=== PATIENT | female | born 1960 | race Caucasian/White ===

== ENCOUNTER → 2020-08-14 09:10 | Outpatient (BNVA) | payer OTHER, SELFPAY | PROVIDERS: Family Provider Family Medicine; PCP Family Medicine; Referring Provider Family Medicine; Visit Provider Specialist | DX: G56.00 Carpal tunnel syndrome, unspecified upper limb (principal) | CPT/HCPCS: 73110 ==

== ENCOUNTER → 2020-08-27 15:46 | Outpatient (BNVA) | payer OTHER, SELFPAY | PROVIDERS: Family Provider Family Medicine; PCP Family Medicine; Visit Provider Orthopaedic Surgery | DX: M54.2 Cervicalgia (principal) | CPT/HCPCS: 72050 ==

== ENCOUNTER 2020-08-30 10:16 | Outpatient (CLI) | payer OTHER, SELFPAY ==
--- NOTE | 2020-08-30 10:15 | MR_ITS ---
WS: [id number] MRI CERVICAL SPINE NONCONTRAST HISTORY: M54.2 - Cervicalgia COMPARISON: 03/26/2010 Technique: Multiplanar, multisequence noncontrast imaging of the cervical spine. This MRI examination is significantly limited by motion artifact. Patient was in pain during the exam ination and unable to remain still. Mild RIGHT curvature cervical spine and straightening. Very mild increased signal in the cervical cord extending over length of 2 cm beginning at the C3-4 d isc. Craniocervical junction, C1 and C2 relationship, odontoid process and soft tissues are normal. C2-C3: Mild RIGHT foraminal narrowing due to facet disease. C3-C4: Diffuse osteophytic ridging with severe disc space narrowing at C3-4. There are large bridging osteophytes and calcified disc centrally. Severe central and moderate bilateral foraminal stenosis due to combination of disc and facet disease in the osteophytes. C4-C5: Marked osteophytic ridging and annular disc bulging with facet and ligamentum flavum hypertrop hy. Severe central canal stenosis and bilateral foraminal stenosis. Significant impingement contact o n the cord. C5-C6: Diffuse osteophytic ridging and annular disc bulging. Mild facet and ligamentum flavum hypertr ophy. Suspected disc protrusion in the LEFT foramen. Severe central and bilateral foraminal stenosis. Significant cord contact. C6-C7: Diffuse osteophytic ridging and annular disc bulging. The disc is poorly visualized but there are probably disc osteophyte complexes bilaterally. Severe central and bilateral foraminal stenosis. Significant impingement upon the cord. C7-T1: Mild narrowing of the LEFT foramen due to disc and osteophyte. Paraspinal soft tissue are normal. MR/MR cervical spin wo con* [id number] IMPRESSION: 1. Quality is limited by motion artifact. 2. Severe multilevel central and foraminal stenosis beginning at C3-4 through C6-7. There is significant cord contact at several levels with the most signifi cant stenosis at C4-5. 3. Myelomalacia in the cervical cord extends over length of 2 cm beginning at C3-4.
== END 2020-08-30 10:17 | disposition home or self-care (01) ==
LOC: RADSHAW 10:18
PROVIDERS: PCP Family Medicine; Visit Provider Orthopaedic Surgery
DX: G95.89 Other specified diseases of spinal cord (principal); M48.02 Spinal stenosis, cervical region
CPT/HCPCS: 72141; 87635

== ENCOUNTER 2020-09-03 17:32 | Inpatient (IN) | payer OTHER, SELFPAY ==
[2020-09-02 08:58] VITALS: BMI 29.8
[2020-09-02 09:30] LABS: Basophils # 0.1 10^3/uL (0.0-0.1); Basophils % 0.6 %; Eosinophils # 0.2 10^3/uL (0.0-0.8); Eosinophils % 1.6 %; Hematocrit 38.7 % (37.0-47.0); Hemoglobin 13.4 g/dL (11.5-15.3); Lymphocytes # 2.8 10^3/uL (0.8-4.8); Lymphocytes % 27.3 %; Mean Corpuscular HGB Conc 34.6 g/dL (30.0-36.0); Mean Corpuscular Hemoglobin 31.5 pg (28.0-34.0); Mean Corpuscular Volume 91.1 fL (81-99); Mean Platelet Volume 10.1 fL (7.4-10.4); Monocytes # 0.8 10^3/uL (0.2-0.9); Monocytes % 8.1 %; Neutrophils # 6.33 10^3/uL (1.8-7.7); Neutrophils % 61.9 %; Nucleated Red Blood Cells % 0 %; Platelet Count 294 10^3/cmm (130-400); Red Blood Count 4.25 10^6/uL (4.1-5.3); Red Cell Distribution Width 13.2 % (12.1-15.1); White Blood Count 10.2 10^3/uL (4.0-10.0)
--- NOTE | 2020-09-02 09:31 | ANES.PREANE2 ---
Pre-Anesthetic Assessment Pre-Anesthetic Assessment: Height/Weight: Height 1.63 m Weight 78.925 kg Preop Diagnosis: cervical spondylosis with myelopathy Proposed Procedure: Operation Date: 09/03/20 13:30 Proposed Procedures p PSF C2-T2 with decompression 86625 46981 92883 82065 10476 82473 21191 95031 M47.12(Not Applicable) - Castro Cheng, DO Was Beta Arvin taken within 24 hours: Yes Was Clonidine taken within 24 hours: N/A Social: Social History: Tobacco and No alcohol Exam: Pre-Anes Outpt Exam: alert, oriented x 3 and regular rate & rhythm Additional Exam Findings (including area of procedure): rhonchi Airway: Submandibular: WNL Cervical ROM: Other (Poor, limited by pain) MP: 2 Dentition: False CV/HEM: CV/HEM: HTN Metabolic: Comments: Chronic steroids Musc/skel: Comments: Chronic pain/opioids Anesthetic Plan: ASA status: 3 Anesthesia: General Other: A.line Risk of > 500 ml blood loss (7ml/kg in children): No PFSH Anesthesia PFSH: Social History (Updated 09/02/20 @ 08:57 by Loly Paula) Smoking and tobacco status: current every day smoker Data Anesthesia CBC & Chem 7: 09/02/20 09:15 09/02/20 09:15 Other Labs: Laboratory Results - last 48 hr 09/02/20 09:15 WBC 10.2 H RBC 4.25 Hgb 13.4 Hct 38.7 MCV 91.1 MCH 31.5 MCHC 34.6 RDW 13.2 Plt Count 294 MPV 10.1 Neut % (Auto) 61.9 Lymph % (Auto) 27.3 Cascade % (Auto) 8.1 Eos % (Auto) 1.6 Baso % (Auto) 0.6 Neut # (Auto) 6.33 Lymph # (Auto) 2.8 Cascade # (Auto) 0.8 Eos # (Auto) 0.2 Baso # (Auto) 0.1 Nucleated RBC % (auto) 0 Nucleated RBCs # 0.0 Cardiac Studies: No Data to Display
[2020-09-02 09:42] LABS: Anion Gap 15.7 (5-19); Blood Urea Nitrogen 10 mg/dL (8-23); Calcium 8.7 mg/dL (8.5-10.5); Carbon Dioxide 25 mmol/L (22-29); Chloride 98 mmol/L (98-107); Glomerular Filtration Rate 162.3 mL/min (90-130); Glucose 102 mg/dL (65-115); Osmolality Calculated 279 mOsm/kg (285-295); Potassium 3.7 mmol/L (3.5-5.1); Sodium 135 mmol/L (136-145)
[2020-09-02 09:51] LABS: Creatinine Clr Calc Pharmacy 150.1315
[2020-09-03] VITALS (28 sets, daily range): BP systolic 94–135; BP diastolic 56–106; PULSE 87–101; RESP 9–19; TEMP 36.1–37.1; O2SAT 91–99
--- NOTE | 2020-09-03 | SCC_ITS ---
Procedure Done: 1. C2-T2 posterior spine fusion 2. C2-T2 instrumentation 3. C3 laminectomy with partial facetectomy 4. C4 Laminectomy with partial facetectomy 5. C5 Laminectomy with partial facetectomy 6. C6 Laminectomy with partial facetectomy 7. C7 Laminectomy with partial facetectomy 8. Application and removal of ambriz tongs 9. Use of allograft 10. Use of autograft from same incision 56.7 seconds of fluoroscopic guidance, for a cumulative dose of 8.89 mGy, was provided to Dr. Cheng by the radiology department. C-arm images of the cervical spine were saved for the patient's permanent record. [facility]
--- NOTE | 2020-09-03 | XR_ITS ---
WS: [id number] C-arm fluoroscopy AP view of the cervical spine, 09/03/2020 Clinical Data: OR PICS Comparison: Cervical spine, 08/27/2020. Findings: There are extensive bilateral pedicle screws from C3 through T3 in the AP view. XR/XR cervical spine 1V [id number] Impression: Bilateral pedicle screws in the cervical spine and upper thoracic spine.
[2020-09-03] MEDS: sodium chloride 0.9% 1,000 ML 30 ML IV (10:50)
--- NOTE | 2020-09-03 12:10 | P.ANESUD_ITS ---
Pre-Anesthetic Update Pre-Anesthetic Assessment: Date of Surgery/Procedure: 09/03/20 Preop Nell gnosis: cervical spondylosis with myelopathy Proposed Procedure: Operation Date: 09/03/20 12:00 Proposed Procedures p PSF C2-T2 with decompression 19892 37408 85259 84793 88205 60257 29972 94961 M47.12(Not Applicable) - Castro H Skylar, DO Any changes to Pre-Anesthetic Assessment?: No Last Intake: Intake Last Liquid Date 09/02/20 Last Liquid Time 11:00 Last Solid Date 09/02/20 Last Solid Time 11:00 Labs Last 48hrs: Laboratory Results - last 48 hr 09/02/20 09/02/20 09:15 09:15 WBC 10.2 H RBC 4.25 Hgb 13.4 Hct 38.7 MCV 91.1 MCH 31.5 MCHC 34.6 RDW 13.2 Plt Count 294 MPV 10.1 Neut % (Auto) 61.9 Lymph % (Auto) 27.3 Mccracken % (Auto) 8.1 Eos % (Auto) 1.6 Baso % (Auto) 0.6 Neut # (Auto) 6.33 Lymph # (Auto) 2.8 [place]racken # (Auto) 0.8 Eos # (Auto) 0.2 Baso # (Auto) 0.1 Nucleated RBC % (a uto) 0 Nucleated RBCs # 0.0 Sodium 135 L Potassium 3.7 Chloride 98 Carbon Dioxide 25 Anion Gap 15.7 BUN 10 Creatinine 0.4 L GFR Calculation 162.3 H Glucose 102 Calculated Osmolal ity 279 L Calcium 8.7 Vitals: Temperature 98.8 F 09/03/20 10:34 Temperature Source Temporal Artery S can 09/03/20 10:34 Pulse Rate 93 09/03/20 10:34 Respiratory Rate 16 09/03/20 10:34 Blood Pressure 118/88 09/03/20 10:34 Blood Pressure Angelic n 98 09/03/20 10:34 Pulse Oximetry 95 09/03/20 10:34 Oxygen Delivery Me thod 09/03/20 10:34 Exam: Pre-Anes Outpt Exam: alert, oriented x 3, clear to auscultation bilaterally and regular rate & rhythm Cardiac Studies: No Data to Display
[2020-09-03] MEDS: midazolam 1 mg/mL INJ 2 mL 2 MG IVP (12:11)
--- NOTE | 2020-09-03 12:15 | W.PM.OPSUD ---
Surgery/Procedure H&P Update DATE OF PROCEDURE: September 03, 2020 DATE H&P PERFORMED: 08/27/20 H&P UPDATE INFORMATION: I have reviewed H&P completed within last 30 days, I have examined patient prior to procedure and No changes to prior documentation PREOP DIAGNOSIS: cervical spondylosis with myelopathy PLANNED PROCEDURE: Operation Date: 09/03/20 12:00 Proposed Procedures p PSF C2-T2 with decompression 11571 45395 15519 28745 35514 88561 06406 93658 M47.12(Not Applicable) - Castro Cheng DO
[2020-09-03] MEDS: fentaNYL 50 mcg/mL INJ 2mL IVP ×3 (13:17→19:28)
[2020-09-03] MEDS: thrombin 5,000 unit SDV 5000 UNIT XX (14:30)
[2020-09-03 16:53] LABS: Add Urine Microscopic? YES; Bilirubin Urine Neg (Negative); Blood Urine Neg (Negative); Glucose Urine UA Norm (Normal); Ketones Urine 1+ (Negative); Leukocyte Esterase Urine Negative (Negative); Nitrate Urine Negative (Negative); Protein Urine Neg (Negative); Urine Appearance Turbid (CLEAR); Urine Color Yellow (Yellow); Urobilinogen Urine Norm (Negative); pH Urine 5 (5-7)
[2020-09-03 16:59] LABS: Bacteria Urine 2+ /hpf
[2020-09-03 17:00] LABS: Add Urine Culture? No; Amorphous Sediment Urine 2+ /hpf
[2020-09-03] MEDS: cefTRIAXone 2,000 MG in sodium chloride 0.9% (plus) 50 ML 100 MG IV (17:27)
--- NOTE | 2020-09-03 18:15 | PM.OP ---
Operative Report Date of procedure: September 03, 2020 Pre-op Diagnosis: cervical spondylosis with myelopathy Post-op diagnosis: same Procedure Done: 1. C2-T2 posterior spine fusion 2. C2-T2 instrumentation 3. C3 laminectomy with partial facetectomy 4. C4 Laminectomy with partial facetectomy 5. C5 Laminectomy with partial facetectomy 6. C6 Laminectomy with partial facetectomy 7. C7 Laminectomy with partial facetectomy 8. Application and removal of ambriz tongs 9. Use of allograft 10. Use of autograft from same incision Surgeon: Castro Cheng Anesthesia: General Estimated blood loss (mL): 700 Condition: stable Disposition: PACU Procedure: 1. C2-T2 posterior spine fusion 2. C2-T2 instrumentation 3. C3 laminectomy with partial facetectomy 4. C4 Laminectomy with partial facetectomy 5. C5 Laminectomy with partial facetectomy 6. C6 Laminectomy with partial facetectomy 7. C7 Laminectomy with partial facetectomy 8. Application and removal of ambriz tongs 9. Use of allograft 10. Use of autograft from same incision Patient was brought to the operative suite after undergoing anesthesia the Ambriz tongs were applied to her head. She has flipped into the prone position all areas impingement were well-padded. Ambriz patch was attached onto the bed. Patient was then prepped and draped in normal sterile fashion over posterior cervical spine area. Skin incision made over the posterior cervical spine from C2-T2. The subperiosteal dissection was made along the lamina out to the edges of the lateral masses from C2-T2 T1 and T2 were out to the transverse processes. Once the levels were confirmed pars screws were placed in the C2. And then lateral mass screws were placed at C3-C4-C5 and C6 bilaterally. The screws were done by using the handrail setting at 2 mm increments and then feeling with the ball feeler. The pars screws on the left was a size 20 and the prior screw on the right was a 16. And the lateral mass screws were a size 14. Next attention was brought to performing the laminectomy. Laminectomy was done at C7 using the high-speed bur. The lamina was taken down bilaterally and then a Kerrison rongeur was used to complete the laminectomy. This was done at C7 as well as C6 followed by C5 followed by C4 followed by C3 Kerrison rongeur was then brought up the laminas of each bilaterally and then Kerrison rongeur was used to grab the spinous process of C7 and then the ligamentum flavum was taken down from C7 all the way up to C3 and the lamina were removed. Extension was brought to the partial facetectomies high-speed bur was used to clean the edges of all the facets from C3 down to C7 bilaterally and Kerrison rongeur was used to clean the edges of the facets bilaterally taken on the medial aspect of each facet from C3-4 C4-5 C5-6 C6-7 bilaterally. Dura was found to be in good repair floated back significantly had severe compression prior to the laminectomy. Wounds were irrigated. The high-speed bur was then used to decorticate the bone around the screws. And then rods were attached from C2-T2 bilaterally. And then locked in position with screw caps. The bone from the lamina was mixed in with the Osteoamp graft. And packed in around the lateral masses from C2-T2. Once this was completed then a Hemovac drain was placed and the muscle was approximated with 0 Vicryl and then the cervical fascia was closed with oh strata fix. Subcu tissue was closed with 2 oh strata fix and skin was closed with nylon. Sterile dressings were applied. Patient's head was detached from the bed. Patient was flipped into the supine position and the Ambriz tongs were removed and patient was transferred to the PACU in stable condition.
--- NOTE | 2020-09-03 18:26 | ANES.PROC ---
Anesthesia Procedures Procedure/Date: 09/03/20 Arterial Line: Time Out Performed: Yes Consent: requested by attending/covering physician, from patient, risks and benefits reviewed and patient agrees to proceed Size (Gauge): 20 Technique Used: guide wire technique Post-Procedure: dry sterile dressing placed Patient Tolerated Procedure: well Complications: none Site: right and radial
--- NOTE | 2020-09-03 18:53 | SUR.PHASEI ---
1820 ART. LINE REMOVE CATHETER INTACT
--- NOTE | 2020-09-03 18:54 | SUR.PHASEI ---
1835 PRESSURE DRESSING APPLIED TO ART. LINE SITE, BLEEDING CONTROLLED
--- NOTE | 2020-09-03 19:37 | PM.CONSULT ---
Providers/Reason For Consult Consulting Physican/Specialty*: Skylar Reason for Consult*: Medical management postoperatively. Attending Physician: Castro Cheng DO Primary Care Provider: Onesimo Lacey MD History of Present Illness History of Present Illness Destin Rodgers is a 60 year old female with past medical history of hypertension, severe cervical stenosis who underwent cervical spine laminectomy and fusion by Dr. Cheng. Our service was kindly asked to help with the management of patient's medical conditions perioperatively. Currently the patient is in recovery. She is extubated. Still sedated and unable to provide significant history. She is occasionally moaning but there is no evidence of uncontrolled pain. No respiratory distress. Estimated blood loss was about 700 cc. I spoke with recovery nurse. There were no hemodynamic problems during the surgery. Vital signs remained stable. Review of Systems General: Reports: ROS unobtainable due to mental status Meds/Allergies Home Medications and Allergies Home Medications Medication Instructions Recorded Confirmed Last Taken Type COCK UP SPLINT #2 ea NS 08/14/20 08/30/20 Unknown Rx atorvastatin 20 mg tablet 20 mg PO DAILY 08/14/20 09/03/20 09/02/20 History diazepam 5 mg tablet 5 mg PO BID PRN 08/14/20 09/02/20 Unknown History duloxetine 30 mg capsule,delayed 30 mg PO DAILY 08/14/20 09/03/20 09/02/20 History release furosemide 20 mg tablet 20 mg PO DAILY PRN 08/14/20 09/03/20 Unknown History hydrochlorothiazide 25 mg tablet 25 mg PO DAILY 08/14/20 09/03/20 09/02/20 History ibuprofen 800 mg tablet 800 mg PO TID PRN 08/14/20 09/03/20 09/02/20 History lisinopril 20 mg tablet 20 mg PO BID 08/14/20 09/03/20 09/02/20 History potassium chloride 10 mEq 10 meq PO DAILY 08/14/20 09/03/20 09/02/20 History capsule,extended release prednisone 20 mg tablet 20 mg PO DAILY PRN 08/14/20 09/02/20 Unknown History tramadol 50 mg tablet 50 mg PO Q4H PRN 08/14/20 09/02/20 Unknown History zolpidem 10 mg tablet 10 mg PO BEDTIME PRN 08/14/20 09/02/20 Unknown History amlodipine 10 mg PO DAILY 09/02/20 09/03/20 09/02/20 History metoprolol succinate 100 mg PO DAILY 09/02/20 09/03/20 09/02/20 21:00 History Bone growth Stimulator E0748 #1 ea 09/03/20 Unknown Rx Allergies Allergy/AdvReac Type Severity Reaction Status Date / Time No Known Allergies Allergy Verified 09/03/20 10:32 Current Medications Current Medications Generic Name Dose Route Start Last Admin Trade Name Freq PRN Reason Stop Dose Admin Fentanyl 50 mcg 09/03/20 10:26 09/03/20 13:17 Fentanyl 50 Mcg/Ml Inj 2ml IVP 50 mcg Q10M PRN Administration Preop Pain Sodium Chloride 1,000 mls @ 30 mls/hr 09/03/20 10:30 09/03/20 10:50 Sodium Chloride 0.9% IV 09/04/20 10:29 30 mls/hr .Q24H MONIQUE Administration Midazolam HCl 2 mg 09/03/20 10:26 09/03/20 12:11 Midazolam 1 Mg/Ml Inj 2 Ml IVP 2 mg Q5M PRN Administration Preop Anxiety PFSH Acute PFSH: Social History (Updated 09/02/20 @ 08:57 by Loly Paula) Smoking and tobacco status: current every day smoker Vitals/I&O/Wt Last Vital Signs Temp 97 F L 09/03/20 18:16 Pulse 93 09/03/20 19:30 Resp 14 09/03/20 19:30 BP 126/81 09/03/20 19:30 Pulse Ox 95 09/03/20 19:30 09/03/20 09/03/20 09/03/20 06:59 14:59 22:59 Intake Total 50 / 50 650 / 700 Output Total 900 / 900 Balance 50 / 50 -250 / -200 Weight last 48 hrs Weight 78.925 kg Weight 78.925 kg Physical Exam Narrative: EXAM NARRATIVE: Still very sedated, tries to open her eyes on request. Lifts her head. No verbal response yet. Skin is warm and dry. Pale. Moist mucous membranes Neck. Cervical collar is present. Lungs are clear. No respiratory distress Heart S1, S2, regular Abdomen soft, nontender, bowel sounds are weak Extremities no edema cyanosis or calf tenderness bilaterally Moves all extremities Eyes PERRL. Urinary Catheter Management^: F: Cath Placed During This Visit: yes Urinary Catheter Date of Insertion: 09/03/20 Urinary Catheter Time of Insertion: 13:35 A&P Additional A&P Information 60-year-old female with past medical history of hypertension and severe cervical stenosis who underwent cervical laminectomy and fusion by Dr. Cheng. Our service was kindly asked by Dr. Cheng to participate in treatment of this patient. Status post cervical fusion and laminectomy. We will continue pain management as already prescribed. Will adjust medications as needed. Continue OT eval and treat in the morning. Estimated blood loss of 700 cc. We will monitor her CBC. Acute blood loss anemia is expected. She is hemodynamically stable. Hypertension. Currently stable. Her home medications are resumed. We will closely monitor her and do the necessary adjustments during this hospitalization. Bacteriuria. The patient is started on Rocephin. It is unclear whether the patient is symptomatic or not. We will reevaluate this problem in the morning when she is more awake. Will consider stopping her Rocephin. Hyponatremia. Mild. Probably due to hydrochlorothiazide. We will monitor it closely. ? Prednisone. Home medication list includes prednisone 20 mg daily. It is unknown why the patient is on steroids. I will clarify it in the morning. DVT prophylaxis. She is on Lovenox. Will monitor platelet count. Thank you very much for allowing us to participate in treatment of this patient. Procedures Arterial Line Size (Gauge): 20 Coding Level of Care Code Acute Maintenance Of Way Superintendent for Esther Schaeffer
[2020-09-03] MEDS: morphine 4 mg/mL SDV 1 mL 2 MG IVP ×2 (19:47→19:52)
--- NOTE | 2020-09-03 20:34 | ANE.PACU2 ---
Inpatient post-anesthesia follow up: Airway intact: Yes Vital signs: Temperature 97.6 F Pulse Rate 97 Respiratory Rate 18 Blood Pressure 117/84 Pulse Oximetry 96 Oxygen Delivery Me thod Nasal Cannula Oxygen Flow Rate 2 Fraction of Inspir ed Oxygen Hydration adequate: Yes Nausea and vomiting: No Pain level: 3 Mental status: Altered Additional Comments: Sedated
[2020-09-03] MEDS: ketorolac 30 mg/mL INJ IVP (21:12)
[2020-09-03 21:43] LABS: Basophils # 0.1 10^3/uL (0.0-0.1); Basophils % 0.4 %; Hematocrit 34.5 % (37.0-47.0); Hemoglobin 11.8 g/dL (11.5-15.3); Lymphocytes # 0.8 10^3/uL (0.8-4.8); Lymphocytes % 5.9 %; Mean Corpuscular HGB Conc 34.2 g/dL (30.0-36.0); Mean Corpuscular Hemoglobin 31.5 pg (28.0-34.0); Mean Platelet Volume 10.1 fL (7.4-10.4); Monocytes # 0.1 10^3/uL (0.2-0.9); Monocytes % 0.9 %; Neutrophils # 12.44 10^3/uL (1.8-7.7); Neutrophils % 92.3 %; Nucleated Red Blood Cells % 0 %; Platelet Count 276 10^3/cmm (130-400); Red Blood Count 3.75 10^6/uL (4.1-5.3); White Blood Count 13.5 10^3/uL (4.0-10.0)
[2020-09-03] MEDS: lactated ringers 1,000 ML 90 ML IV (23:48)
[2020-09-03] MEDS: HYDROcodone-acetaminophen 5-325 mg Tablet PO (23:54)
[2020-09-04] VITALS (8 sets, daily range): BP systolic 96–127; BP diastolic 65–78; PULSE 94–111; RESP 15–18; TEMP 36.3–37.1; O2SAT 93–98
[2020-09-04] MEDS: TRAMadol 50 mg Tablet PO (02:41)
[2020-09-04 02:49] LABS: Basophils % 0.3 %; Hematocrit 31.8 % (37.0-47.0); Hemoglobin 11.1 g/dL (11.5-15.3); Lymphocytes # 0.7 10^3/uL (0.8-4.8); Mean Corpuscular HGB Conc 34.9 g/dL (30.0-36.0); Mean Corpuscular Hemoglobin 31.8 pg (28.0-34.0); Mean Corpuscular Volume 91.1 fL (81-99); Mean Platelet Volume 10.2 fL (7.4-10.4); Monocytes # 0.1 10^3/uL (0.2-0.9); Monocytes % 0.8 %; Neutrophils # 13.15 10^3/uL (1.8-7.7); Neutrophils % 93.5 %; Nucleated Red Blood Cells % 0 %; Platelet Count 270 10^3/cmm (130-400); Red Blood Count 3.49 10^6/uL (4.1-5.3); Red Cell Distribution Width 12.9 % (12.1-15.1); White Blood Count 14.1 10^3/uL (4.0-10.0)
[2020-09-04 03:04] LABS: Magnesium 1.6 mg/dL (1.7-2.3)
[2020-09-04 03:09] LABS: Albumin Level 3.7 g/dL (3.5-5.2); Blood Urea Nitrogen 10 mg/dL (8-23); Calcium 7.6 mg/dL (8.5-10.5); Carbon Dioxide 25 mmol/L (22-29); Chloride 104 mmol/L (98-107); Creatinine Clr Calc Pharmacy 120.1052; Glomerular Filtration Rate 125.4 mL/min (90-130); Glucose 152 mg/dL (65-115); Sodium 138 mmol/L (136-145)
[2020-09-04] MEDS: morphine 4 mg/mL SDV 1 mL IVP ×2 (03:20→10:32)
--- NOTE | 2020-09-04 03:22 | PC.NURSE ---
Patient is crying out loudly in pain, tears rolling down her face. She reports pain 10/10. Patient has had toradol, hydrocodone, and tramadol without significant relief. Received order for morphine 2-4mg q3hour prn from Dr. Alanis.
[2020-09-04] MEDS: cefTRIAXone 1,000 MG in sodium chloride 0.9% (plus) 50 ML 100 MG IV ×2 (05:35→17:04)
[2020-09-04] MEDS: enoxaparin 40 mg/0.4 mL Syringe SUBCUT (05:39)
--- NOTE | 2020-09-04 07:07 | P.PN_ITS ---
Subjective Subjective: Interval history: Patient's collar his too large for her. Patient's had significant pain through the night. At this point pain is better controlled on morphine. We will keep her on the morphine. The patient's subjective movement is back to baseline to preop. Vitals/I&O/Wt Last Vital Signs Temp 98.1 F 09/04/20 01:56 Pulse 98 09/04/20 01:56 Resp 16 09/04/20 01:56 BP 127/78 09/04/20 01:56 Pulse Ox 97 09/04/20 01:56 09/03/20 09/04/20 09/04/20 22:59 06:59 14:59 Intake Total 1650 / 1700 190 / 1890 Output Total 1060 / 1060 830 / 1890 Balance 590 / 640 -640 / 0 Weight last 48 hrs Weight 174 lb Weight 174 lb Physical Exam Narrative: EXAM NARRATIVE: Patient is moving her bilateral upper extremities and lower extremities. Drain had approximate 2 and 50 cc out. At this point I will leave it in. Urinary Catheter Management^: F: Cath Placed During This Visit: yes Reason for Continuing Indwelling Catheter: Perioperative Use in Selected Surgeries Urinary Catheter Date of Insertion: 09/03/20 Urinary Catheter Time of Insertion: 13:35 Data : 09/04/20 02:09 09/04/20 02:09 A&P Assessment and plan (1) Cervical spondylosis with myelopathy: Patient is postop day #1 C2-T2 posterior spine fusion with decompression. Plan is to fit her for a [place] brace. Get her up with physical therapy at least to chair today. Consult social welfare research worker for possible rehab placement. Status: Acute Attestations Medical Necessity Statement*: Patient has significant myelopathy. Can barely walk. Likely will need to be in the hospital until she can find placement to a rehab facility. Procedures Arterial Line Size (Gauge): 20 Coding Level of Care Code Acute Finishing Room Supervisor for Esther Schaeffer Diagnoses Cervical spondylosis with myelopathy M47.12
[2020-09-04] MEDS: HYDROcodone-acetaminophen 5-325 mg Tablet PO ×2 (08:14→18:00)
[2020-09-04] MEDS: amlodipine 10 mg Tablet PO (08:15)
[2020-09-04] MEDS: duloxetine 30 mg Capsule PO (08:15)
[2020-09-04] MEDS: metoprolol succinate ER (24 HR) 100 mg Tablet PO (08:15)
[2020-09-04] MEDS: potassium chloride ER 10 mEq Tablet PO (08:15)
[2020-09-04] MEDS: hydroCHLOROthiazide 25 mg Tablet PO (08:15)
[2020-09-04] MEDS: atorvastatin 40 mg Tablet 20 MG PO (08:15)
[2020-09-04] MEDS: lisinopril 20 mg Tablet PO ×2 (08:15→17:05)
[2020-09-04] MEDS: lactated ringers 1,000 ML 90 ML IV (11:13)
--- NOTE | 2020-09-04 13:03 | PM.PN ---
Subjective Subjective: Interval history: Patient was seen ambulating with physical therapy, she tells me she is doing well, she tells me that she has appropriate help at home, her works as a nurse at [employer], she tells me that she only takes prednisone as a burst if she were to have osteoarthritic pain Vitals/I&O/Wt Last Vital Signs Temp 97.6 F 09/04/20 11:26 Pulse 108 H 09/04/20 11:26 Resp 18 09/04/20 11:26 BP 96/66 09/04/20 11:26 Pulse Ox 96 09/04/20 11:26 09/03/20 09/04/20 09/04/20 22:59 06:59 14:59 Intake Total 1650 / 1700 190 / 1890 1120 / 1120 Output Total 1060 / 1060 830 / 1890 Balance 590 / 640 -640 / 0 1120 / 1120 Physical Exam Urinary Catheter Management^: F: Cath Placed During This Visit: yes Reason for Continuing Indwelling Catheter: Perioperative Use in Selected Surgeries Urinary Catheter Date of Insertion: 09/03/20 Urinary Catheter Time of Insertion: 13:35 Data : 09/04/20 02:09 09/04/20 02:09 A&P Assessment and plan (1) Cervical spondylosis with myelopathy: Status: Acute (2) Hypertension: Status: Acute (3) UTI (urinary tract infection): Status: Acute Additional A&P Information 60-year-old female with past medical history of hypertension and severe cervical stenosis who underwent cervical laminectomy and fusion by Dr. Cheng. Our service was kindly asked by Dr. Cheng to participate in treatment of this patient. Status post cervical fusion and laminectomy. We will continue pain management as already prescribed. Drain in place. Continue OT eval and treat in the morning. Estimated blood loss of 700 cc. Hemoglobin 11.1. Acute blood loss anemia is expected. She is hemodynamically stable. Hypertension. Currently stable. Her home medications are resumed. We will closely monitor her and do the necessary adjustments during this hospitalization. UTI. Currently on Rocephin Hyponatremia. Resolved DVT prophylaxis. She is on Lovenox. Will monitor platelet count. Thank you very much for allowing us to participate in treatment of this patient. Attestations Medical Necessity Statement*: Patient requires hospitalization for surgery, Procedures Arterial Line Size (Gauge): 20 Coding Level of Care Code Acute Sex Worker Or Escort for Chg Fwd Diagnoses Cervical spondylosis with myelopathy M47.12 Hypertension I10 UTI (urinary tract infection) N39.0
[2020-09-04] MEDS: ketorolac 30 mg/mL INJ IVP (21:18)
[2020-09-04] MEDS: diazePAM 5 mg Tablet PO (21:19)
[2020-09-05] VITALS (7 sets, daily range): BP systolic 103–160; BP diastolic 69–83; PULSE 93–99; RESP 18; TEMP 36.3–36.8; O2SAT 95–98
[2020-09-05] MEDS: lactated ringers 1,000 ML 90 ML IV ×3 (00:06→21:30)
[2020-09-05] MEDS: HYDROcodone-acetaminophen 5-325 mg Tablet PO ×2 (00:06→06:40)
[2020-09-05] MEDS: cefTRIAXone 1,000 MG in sodium chloride 0.9% (plus) 50 ML 100 MG IV ×2 (05:21→17:20)
[2020-09-05] MEDS: enoxaparin 40 mg/0.4 mL Syringe SUBCUT (05:23)
[2020-09-05] MEDS: TRAMadol 50 mg Tablet PO ×2 (05:27→15:53)
[2020-09-05] MEDS: ketorolac 30 mg/mL INJ IVP (06:34)
--- NOTE | 2020-09-05 06:48 | PC.NURSE ---
Patient slept good tonight, however when awake her pain is out of control. We gave her toradol and valium on top of hydrocodone before bed and that seemed to help. This morning she is crying out in pain saying something is wrong! I dont want to do this anymore! I just want to ! She was given tramadol which didn't seem to help an hour later was given toradol and hydrocodone.
--- NOTE | 2020-09-05 07:42 | PM.PN ---
Subjective Subjective: Interval history: patient having pain this am will add oxycodone, and decadron Vitals/I&O/Wt Last Vital Signs Temp 98.3 F 09/05/20 07:30 Pulse 93 09/05/20 07:30 Resp 18 09/05/20 07:30 BP 103/69 09/05/20 07:30 Pulse Ox 96 09/05/20 07:30 09/04/20 09/05/20 09/05/20 22:59 06:59 14:59 Intake Total 1100 / 2220 Output Total 1969 1250 / 3220 Balance -870 / 250 -1250 / -1000 Physical Exam Narrative: EXAM NARRATIVE: moving all extremities Urinary Catheter Management^: F: Cath Placed During This Visit: yes Reason for Continuing Indwelling Catheter: Required Immobilization for Trauma or Surgery or Anesthesia Urinary Catheter Date of Insertion: 09/03/20 Urinary Catheter Time of Insertion: 13:35 Data : 09/04/20 02:09 09/04/20 02:09 A&P Assessment and plan (1) Cervical spondylosis with myelopathy: POD # 2 C2-T2 PSF get up with PT increase pain meds with Oxycodone 10 add decadron for a day or 2 d/c planning with social service d/c [place] Status: Acute Attestations Medical Necessity Statement*: pain control Procedures Arterial Line Size (Gauge): 20 Coding Level of Care Code Acute Apprentice Plant Attendant for Esther Schaeffer Diagnoses Cervical spondylosis with myelopathy M47.12
[2020-09-05] MEDS: duloxetine 30 mg Capsule PO (08:23)
[2020-09-05] MEDS: potassium chloride ER 10 mEq Tablet PO (08:23)
[2020-09-05] MEDS: metoprolol succinate ER (24 HR) 100 mg Tablet PO (08:23)
[2020-09-05] MEDS: atorvastatin 40 mg Tablet 20 MG PO (08:25)
[2020-09-05] MEDS: dexamethasone 10 mg/mL INJ IVP ×3 (09:52→21:02)
[2020-09-05] MEDS: oxyCODONE-APAP 10-325 mg Tablet PO ×2 (10:31→17:24)
--- NOTE | 2020-09-05 11:25 | PC.CHAP ---
Pastoral Care Encounter/Spiritual Assessment Type of Contact [] Declined hardwood floor sander visit [] Patient/Family/Request visit [] Outpatient visit [x] Follow-up visit [] Physician referral [] Code/Alert [] Routine visit [] Staff referral [] Actively dying [] Patient sleeping [] Family support [] [] Out of room [] Palliative care [] [] Receiving care in room [] Pre-surgical visit [] Trauma [] Long length of stay [] ICU visit [] Other: Relational/Emotional Strength [] Patient feels connected with others/family/visitors/staff [] Distress [] Loneliness/isolation [] Abandonment Spirituality of Patient [] Person of [place] [] Attends Scientologist of their [place] [] Believes in Prayer [] Reads Bible or Denominational materials [] There are Spiritual issues to be addressed Biomedical Equipment Technician Interventions [] Prayer [] Active listening [] Non-anxious presence [] Spiritual/emotional support [] Crisis/trauma care [] Spiritual counseling [] Bereavement support [] Provided bereavement packet [] Provided Bible/devotional materials [] Provided toy/stuffed animal, coloring book to patient or family member [] Provided Communion [] Anointing/[place] [] Salvation [] Completed spiritual assessment [] Other: Impact on Illness or Injury [] Angry [] Fearful [] Anxious [] Often cries [] Exhaustion [] Unable to work [] Unable to attend islam [] Unable to walk/stand [] Unable to read [] Unable to drive [] Unable to eat/drink [] Unable to sleep [] Unable to be with family [] Patient intubated [] Other: Summary Follow-up visit Time spent with patient 5 mins
--- NOTE | 2020-09-05 12:57 | P.PN_ITS ---
Subjective Subjective: Interval history: Patient continues to have episodes of severe neck pain, she is received multiple pain medications her blood pressures are a bit borderline, currently she is laying in bed, lying still, in severe pain, is at bedside, she tells me that she has had a poor appetite Vitals/I&O/Wt Last Vital Signs Temp 97.4 F L 09/05/20 11:25 Pulse 98 09/05/20 11:25 Resp 18 09/05/20 11:25 BP 160/81 09/05/20 11:25 Pulse Ox 97 09/05/20 11:25 09/04/20 09/05/20 09/05/20 22:59 06:59 14:59 Intake Total 1100 / 2220 1050 / 1050 Output Total 1969 / 1969 1250 / 3220 Balance -870 / 250 -1250 / -1000 1050 / 1050 Physical Exam Narrative: EXAM NARRATIVE: Currently in a cervical collar Const: COMMON NORMALS: no acute distress and patient oriented x3 HENMT: COMMON NORMALS: normocephalic HEAD & SCALP: normocephalic Neck/C-Spine: COMMON NORMALS: no JVD Resp: COMMON NORMALS: normal respiratory effort, No retractions, No use of accessory muscles and clear to auscultation bilaterally AUSCULTATION: clear to auscultation bilaterally Cardio: COMMON NORMALS: no JVD, regular rate, regular rhythm, S1 normal heart sound present and S2 normal heart sound present RATE: regular rate RHYTHM: regular rhythm HEART SOUNDS: S1 normal heart sound present and S2 normal heart sound present GI: COMMON NORMALS: Normal to inspection, nondistended, normoactive bowel sounds present, Soft to palpation, non-tender, No hepatosplenomegaly present, no masses and no bruits PALPATION: Yes Soft to palpation and Yes No hepatosplenomegaly present Extremity: COMMON NORMALS: no clubbing, cyanosis or edema and no pedal edema Neuro: COMMON NORMALS: patient oriented x3 Psych: COMMON NORMALS: mental status grossly normal Urinary Catheter Management^: F: Cath Placed During This Visit: yes Reason for Continuing Indwelling Catheter: Required Immobilization for Trauma or Surgery or Anesthesia Urinary Catheter Date of Insertion: 09/03/20 Urinary Catheter Time of Insertion: 13:35 Data : 09/04/20 02:09 09/04/20 02:09 A&P Assessment and plan (1) Cervical spondylosis with myelopathy: Status: Acute (2) Hypertension: Status: Acute (3) UTI (urinary tract infection): Status: Acute Additional A&P Information 60-year-old female with past medical history of hypertension and severe cervical stenosis who underwent cervical laminectomy and fusion by Dr. Cheng. Our service was kindly asked by Dr. Cheng to participate in treatment of this patient. Status post cervical fusion and laminectomy. Increased pain, pain medications adjusted by surgical service. Drain in place. Continue OT eval and treat in the morning. Estimated blood loss of 700 cc. Hemoglobin 11.1. She is hemodynamically stable. Hypertension. Blood pressure medications on hold due to soft blood pressure. We will closely monitor her and do the necessary adjustments during this hospitalization. UTI. Currently on Rocephin, follow urine culture Hyponatremia. Resolved DVT prophylaxis. She is on Lovenox. Will monitor platelet count. Thank you very much for allowing us to participate in treatment of this patient. Attestations Medical Necessity Statement*: Patient requires hospitalization status post l aminectomy Procedures Arterial Line Size (Gauge): 20 Coding Level of Care Code Acute Body Liner for [facility] Fwd Diagnoses Cervical spondylosis with myelopathy M47.12 Hypertension I10 UTI (urinary tract infection) N39.0
[2020-09-05] MEDS: lisinopril 20 mg Tablet PO (17:20)
--- NOTE | 2020-09-05 18:22 | PC.NURSE ---
Drain removed, dressing applied.
[2020-09-05] MEDS: zolpidem 5 mg Tablet 10 MG PO (21:31)
[2020-09-06] VITALS (12 sets, daily range): BP systolic 107–172; BP diastolic 67–90; PULSE 95–114; RESP 18–20; TEMP 35.7–36.9; O2SAT 91–98
[2020-09-06] MEDS: dexamethasone 10 mg/mL INJ IVP ×4 (02:23→21:50)
[2020-09-06] MEDS: enoxaparin 40 mg/0.4 mL Syringe SUBCUT (05:04)
[2020-09-06] MEDS: cefTRIAXone 1,000 MG in sodium chloride 0.9% (plus) 50 ML 100 MG IV ×2 (05:04→17:57)
[2020-09-06] MEDS: morphine 4 mg/mL SDV 1 mL IVP (05:05)
--- NOTE | 2020-09-06 07:11 | P.PN_ITS ---
Subjective Subjective: Interval history: pain better controlled today. I discussed with her working with PT today and being discharged home tomorrow Vitals/I&O/Wt Last Vital Signs Temp 97.2 F L 09/06/20 03:51 Pulse 95 09/06/20 03:51 Resp 20 H 09/06/20 05:05 BP 166/90 09/06/20 03:51 Pulse Ox 97 09/06/20 03:51 09/05/20 09/06/20 09/06/20 22:59 06:59 14:59 Intake Total 20178 Output Total 1220 / 1220 0 1220 Balance -252 / 798 50 / 848 Physical Exam Narrative: EXAM NARRATIVE: dressing CDI moving all extremities laying in bed Urinary Catheter Management^: F: Cath Placed During This Visit: yes, but has since been removed by the nurse Reason for Continuing Indwelling Catheter: Decision to DC Catheter Urinary Catheter Date of Insertion: 09/03/20 Urinary Catheter Time of Insertion: 13:35 Date Urinary Catheter Removed: 09/05/20 Time Urinary Catheter Discontinued: 15:43 Data : 09/04/20 02:09 09/04/20 02:09 A&P Assessment and plan (1) Cervical spondylosis with myelopathy: UP with PT today d/c home tomorrow Status: Acute Attestations Medical Necessity Statement*: pain control and stability to go home Procedures Arterial Line Size (Gauge): 20 Coding Level of Care Code Acute Supervisor Pipe Finishing for [facility] Diagnoses Cervical spondylosis with myelopathy M47.12
[2020-09-06] MEDS: duloxetine 30 mg Capsule PO (08:09)
[2020-09-06] MEDS: hydroCHLOROthiazide 25 mg Tablet PO (08:09)
[2020-09-06] MEDS: amlodipine 10 mg Tablet PO (08:09)
[2020-09-06] MEDS: diazePAM 5 mg Tablet PO (08:09)
[2020-09-06] MEDS: atorvastatin 40 mg Tablet 20 MG PO (08:09)
[2020-09-06] MEDS: potassium chloride ER 10 mEq Tablet PO (08:09)
[2020-09-06] MEDS: lisinopril 20 mg Tablet PO ×2 (08:10→17:58)
[2020-09-06] MEDS: metoprolol succinate ER (24 HR) 100 mg Tablet PO (08:10)
[2020-09-06] MEDS: oxyCODONE-APAP 10-325 mg Tablet PO ×4 (08:32→23:56)
[2020-09-06] MEDS: TRAMadol 50 mg Tablet PO ×2 (11:49→20:11)
--- NOTE | 2020-09-06 12:10 | PM.PN ---
Subjective Subjective: Interval history: Patient tells me she is doing better today, neck pain is better controlled, had a bowel movement, urinating, appetite is improving, she is working with physical therapy, she just not ready to go home yet Vitals/I&O/Wt Last Vital Signs Temp 98.5 F 09/06/20 11:32 Pulse 98 09/06/20 11:32 Resp 18 09/06/20 11:32 BP 120/67 09/06/20 11:32 Pulse Ox 95 09/06/20 11:32 09/05/20 09/06/20 09/06/20 22:59 06:59 14:59 Intake Total 2017 50 / 2068 240 / 240 Output Total 1220 / 1220 0 / 1220 Balance -252 / 798 50 / 848 240 / 240 Physical Exam Narrative: EXAM NARRATIVE: Patient is in a cervical collar Const: COMMON NORMALS: no acute distress and patient oriented x3 HENMT: COMMON NORMALS: normocephalic HEAD & SCALP: normocephalic Neck/C-Spine: COMMON NORMALS: no JVD Resp: COMMON NORMALS: normal respiratory effort, No retractions, No use of accessory muscles and clear to auscultation bilaterally AUSCULTATION: clear to auscultation bilaterally Cardio: COMMON NORMALS: no JVD, regular rate, regular rhythm, S1 normal heart sound present and S2 normal heart sound present RATE: regular rate RHYTHM: regular rhythm HEART SOUNDS: S1 normal heart sound present and S2 normal heart sound present GI: COMMON NORMALS: Normal to inspection, nondistended, normoactive bowel sounds present, Soft to palpation, non-tender, No hepatosplenomegaly present, no masses and no bruits PALPATION: Yes Soft to palpation and Yes No hepatosplenomegaly present Extremity: COMMON NORMALS: capillary refill normal, no clubbing, cyanosis or edema, no calf tenderness and no pedal edema Neuro: COMMON NORMALS: patient oriented x3 Psych: COMMON NORMALS: mental status grossly normal Urinary Catheter Management^: F: Cath Placed During This Visit: yes, but has since been removed by the nurse Reason for Continuing Indwelling Catheter: Decision to DC Catheter Urinary Catheter Date of Insertion: 09/03/20 Urinary Catheter Time of Insertion: 13:35 Date Urinary Catheter Removed: 09/05/20 Time Urinary Catheter Discontinued: 15:43 Data : 09/04/20 02:09 09/04/20 02:09 A&P Assessment and plan (1) Cervical spondylosis with myelopathy: Status: Acute (2) Hypertension: Status: Acute (3) UTI (urinary tract infection): Status: Acute Additional A&P Information 60-year-old female with past medical history of hypertension and severe cervical stenosis who underwent cervical laminectomy and fusion by Dr. Cheng. Our service was kindly asked by Dr. Cheng to participate in treatment of this patient. Status post cervical fusion and laminectomy. Increased pain, pain medications adjusted by surgical service. Drain in place. Continue OT eval and treat in the morning. Estimated blood loss of 700 cc. ]. She is hemodynamically stable. Hypertension. Blood pressure medications on hold due to soft blood pressure. We will closely monitor her and do the necessary adjustments during this hospitalization. UTI. Currently on Rocephin, follow urine culture Hyponatremia. Resolved DVT prophylaxis. She is on Lovenox. Thank you very much for allowing us to participate in treatment of this patient. Attestations Medical Necessity Statement*: Patient requires hospitalization for laminectomy, postoperative pain Procedures Arterial Line Size (Gauge): 20 Coding Level of Care Code Acute Chief Hospital Administrator for [facility] Fwd Diagnoses Cervical spondylosis with myelopathy M47.12 Hypertension I10 UTI (urinary tract infection) N39.0
[2020-09-06] MEDS: efferdent effervescent 1 EACH DENTAL (13:47)
[2020-09-06] MEDS: fixodent 39 gm Tube 1 APPLIC DENTAL (13:47)
--- NOTE | 2020-09-06 14:14 | PC.CHAP ---
Pastoral Care Encounter/Spiritual Assessment Type of Contact [xx] Declined engineering and development director visit [] Patient/Family/Request visit [] Outpatient visit [xx] Follow-up visit [] Physician referral [] Code/Alert [] Routine visit [] Staff referral [] Actively dying [] Patient sleeping [] Family support [] [] Out of room [] Palliative care [] [] Receiving care in room [] Pre-surgical visit [] Trauma [xx] Long length of stay [] ICU visit [] Other: Relational/Emotional Strength [] Patient feels connected with others/family/visitors/staff [] Distress [] Loneliness/isolation [] Abandonment Spirituality of Patient [] Person of [place] [] Attends Amish of their [place] [] Believes in Prayer [] Reads Bible or Taoist materials [] There are Spiritual issues to be addressed Hat Designer Interventions [] Prayer [] Active listening [] Non-anxious presence [] Spiritual/emotional support [] Crisis/trauma care [] Spiritual counseling [] Bereavement support [] Provided bereavement packet [] Provided Bible/devotional materials [] Provided toy/stuffed animal, coloring book to patient or family member [] Provided Communion [] Anointing/[place] [] Salvation [xx] Completed spiritual assessment [] Other: Impact on Illness or Injury [] Angry [] Fearful [] Anxious [] Often cries [] Exhaustion [] Unable to work [] Unable to attend congregation [] Unable to walk/stand [] Unable to read [] Unable to drive [] Unable to eat/drink [] Unable to sleep [] Unable to be with family [] Patient intubated [] Other: Summary Spouse was with patient. They both declined engineering and development director visit stating patient was too miserable for visitors as present. Patient was prone, in neck brace and moaning loudly when engineering and development director entered room. Time spent with patient 2 minutes
--- NOTE | 2020-09-06 14:54 | PC.NURSE ---
Report to Marjan MCHUGH at this time.
--- NOTE | 2020-09-06 16:59 | PC.RESP ---
Smoking Cessation information sent to patient.
[2020-09-06] MEDS: zolpidem 5 mg Tablet 10 MG PO (21:27)
[2020-09-07] VITALS (10 sets, daily range): BP systolic 113–157; BP diastolic 71–95; PULSE 88–94; RESP 15–20; TEMP 36.2–36.9; O2SAT 91–95
[2020-09-07] MEDS: TRAMadol 50 mg Tablet PO ×2 (01:55→08:40)
[2020-09-07] MEDS: dexamethasone 10 mg/mL INJ IVP ×4 (03:03→20:51)
[2020-09-07] MEDS: enoxaparin 40 mg/0.4 mL Syringe SUBCUT (05:18)
[2020-09-07] MEDS: cefTRIAXone 1,000 MG in sodium chloride 0.9% (plus) 50 ML 100 MG IV (05:18)
[2020-09-07] MEDS: oxyCODONE-APAP 10-325 mg Tablet PO ×4 (05:32→22:38)
[2020-09-07 07:38] LABS: Basophils % 0.1 %; Hematocrit 30.2 % (37.0-47.0); Hemoglobin 10.3 g/dL (11.5-15.3); Lymphocytes # 1.6 10^3/uL (0.8-4.8); Lymphocytes % 11.6 %; Mean Corpuscular HGB Conc 34.1 g/dL (30.0-36.0); Mean Corpuscular Hemoglobin 31.8 pg (28.0-34.0); Mean Corpuscular Volume 93.2 fL (81-99); Mean Platelet Volume 10.4 fL (7.4-10.4); Monocytes # 0.4 10^3/uL (0.2-0.9); Monocytes % 3.1 %; Neutrophils # 11.52 10^3/uL (1.8-7.7); Neutrophils % 84.3 %; Nucleated Red Blood Cells % 0 %; Platelet Count 283 10^3/cmm (130-400); Red Blood Count 3.24 10^6/uL (4.1-5.3); Red Cell Distribution Width 13.1 % (12.1-15.1); White Blood Count 13.7 10^3/uL (4.0-10.0)
[2020-09-07 07:49] LABS: Alanine Aminotransferase 16 U/L (0-33); Albumin Level 3.6 g/dL (3.5-5.2); Alkaline Phosphatase 88 IU/L (35-105); Anion Gap 14.7 (5-19); Aspartate Amino Transferase 16 U/L (0-32); Blood Urea Nitrogen 12 mg/dL (8-23); Calcium 8.4 mg/dL (8.5-10.5); Carbon Dioxide 30 mmol/L (22-29); Chloride 96 mmol/L (98-107); Glomerular Filtration Rate 226.2 mL/min (90-130); Glucose 164 mg/dL (65-115); Magnesium 1.9 mg/dL (1.7-2.3); Osmolality Calculated 287 mOsm/kg (285-295); Phosphorus 3.3 mg/dL (2.5-4.5); Potassium 3.7 mmol/L (3.5-5.1); Sodium 137 mmol/L (136-145); Total Bilirubin 0.3 mg/dL (0.15-1.2); Total Protein 5.6 g/dL (6.6-8.7)
[2020-09-07] MEDS: hydroCHLOROthiazide 25 mg Tablet PO (08:36)
[2020-09-07] MEDS: metoprolol succinate ER (24 HR) 100 mg Tablet PO (08:36)
[2020-09-07] MEDS: potassium chloride ER 10 mEq Tablet PO (08:36)
[2020-09-07] MEDS: amlodipine 10 mg Tablet PO (08:36)
[2020-09-07] MEDS: atorvastatin 40 mg Tablet 20 MG PO (08:36)
[2020-09-07] MEDS: lisinopril 20 mg Tablet PO ×2 (08:36→17:04)
[2020-09-07] MEDS: duloxetine 30 mg Capsule PO (08:36)
--- NOTE | 2020-09-07 10:54 | PM.PN ---
Subjective Subjective: Interval history: pain improving. would like to stay one more day Vitals/I&O/Wt Last Vital Signs Temp 98.3 F 09/07/20 07:47 Pulse 91 09/07/20 07:47 Resp 18 09/07/20 07:47 BP 128/71 09/07/20 07:47 Pulse Ox 95 09/07/20 07:47 09/06/20 09/07/20 09/07/20 22:59 06:59 14:59 Intake Total 410 2009 170 / 2180 360 / 360 Output Total 450 / 450 Balance 410 2009 -280 / 1730 360 / 360 Physical Exam Narrative: EXAM NARRATIVE: moving all extemities Urinary Catheter Management^: F: Cath Placed During This Visit: yes, but has since been removed by the nurse Reason for Continuing Indwelling Catheter: Decision to DC Catheter Urinary Catheter Date of Insertion: 09/03/20 Urinary Catheter Time of Insertion: 13:35 Date Urinary Catheter Removed: 09/05/20 Time Urinary Catheter Discontinued: 15:43 Data : 09/07/20 06:35 09/07/20 06:35 A&P Additional A&P Information POD#4 posterior cervical fusion Attestations Medical Necessity Statement*: ok to d/c tomorrow Procedures Arterial Line Size (Gauge): 20 Coding Level of Care Code Acute Time Cycle Operator for Esther Schaeffer
--- NOTE | 2020-09-07 11:51 | PM.PN ---
Subjective Subjective: Interval history: Patient was examined this morning, she tells me that her pain has significantly improved, she is ambulating more without symptomatology, her appetite has improved, she is doing better, she feels that she needs another night, but feels that she can go home Vitals/I&O/Wt Last Vital Signs Temp 98.4 F 09/07/20 11:44 Pulse 91 09/07/20 11:44 Resp 18 09/07/20 11:44 BP 121/80 09/07/20 11:44 Pulse Ox 92 09/07/20 11:44 09/06/20 09/07/20 09/07/20 22:59 06:59 14:59 Intake Total 2009 170 / 2180 360 / 360 Output Total 450 / 450 Balance 2009 -280 / 1730 360 / 360 Physical Exam Narrative: EXAM NARRATIVE: In a cervical collar Const: COMMON NORMALS: no acute distress and patient oriented x3 HENMT: COMMON NORMALS: normocephalic HEAD & SCALP: normocephalic Neck/C-Spine: COMMON NORMALS: no JVD Resp: COMMON NORMALS: normal respiratory effort, No retractions, No use of accessory muscles and clear to auscultation bilaterally AUSCULTATION: clear to auscultation bilaterally Cardio: COMMON NORMALS: no JVD, regular rate, regular rhythm, S1 normal heart sound present and S2 normal heart sound present RATE: regular rate RHYTHM: regular rhythm HEART SOUNDS: S1 normal heart sound present and S2 normal heart sound present GI: COMMON NORMALS: Normal to inspection, nondistended, normoactive bowel sounds present, Soft to palpation, non-tender, No hepatosplenomegaly present, no masses and no bruits PALPATION: Yes Soft to palpation and Yes No hepatosplenomegaly present Extremity: COMMON NORMALS: capillary refill normal, no clubbing, cyanosis or edema, no calf tenderness and no pedal edema Neuro: COMMON NORMALS: patient oriented x3 Psych: COMMON NORMALS: mental status grossly normal Urinary Catheter Management^: F: Cath Placed During This Visit: yes, but has since been removed by the nurse Reason for Continuing Indwelling Catheter: Decision to DC Catheter Urinary Catheter Date of Insertion: 09/03/20 Urinary Catheter Time of Insertion: 13:35 Date Urinary Catheter Removed: 09/05/20 Time Urinary Catheter Discontinued: 15:43 Data : 09/07/20 06:35 09/07/20 06:35 A&P Assessment and plan (1) Cervical spondylosis with myelopathy: Status: Acute (2) Hypertension: Status: Acute (3) UTI (urinary tract infection): Status: Acute Additional A&P Information 60-year-old female with past medical history of hypertension and severe cervical stenosis who underwent cervical laminectomy and fusion by Dr. Cheng. Our service was kindly asked by Dr. Cheng to participate in treatment of this patient. Status post cervical fusion and laminectomy. Increased pain, pain medications adjusted by surgical service. Drain in place. Continue OT eval and treat in the morning. Estimated blood loss of 700 cc. ]. She is hemodynamically stable. Hypertension. Blood pressure medications on hold due to soft blood pressure. We will closely monitor her and do the necessary adjustments during this hospitalization. UTI. Cultures have not been obtained, and she is finished 3 days of Rocephin as inpatient, will not need antibiotics at discharge Hyponatremia. Resolved DVT prophylaxis. She is on Lovenox. Thank you very much for allowing us to participate in treatment of this patient. Attestations Medical Necessity Statement*: Patient will be discharged today Procedures Arterial Line Size (Gauge): 20 Coding Level of Care Code Acute Welding Machine Operator Gas for [facility] Fwd Diagnoses Cervical spondylosis with myelopathy M47.12 Hypertension I10 UTI (urinary tract infection) N39.0
[2020-09-08 01:43] VITALS: RESP 18
[2020-09-08] MEDS: morphine 4 mg/mL SDV 1 mL IVP (01:43)
[2020-09-08] MEDS: dexamethasone 10 mg/mL INJ IVP ×2 (01:49→08:06)
[2020-09-08 03:51] VITALS: BP 132/78; PULSE 86; RESP 16; TEMP 36.4; O2SAT 93
[2020-09-08] MEDS: enoxaparin 40 mg/0.4 mL Syringe SUBCUT (05:53)
[2020-09-08 06:15] VITALS: RESP 18
[2020-09-08] MEDS: oxyCODONE-APAP 10-325 mg Tablet PO ×2 (06:15→10:31)
[2020-09-08 07:53] LABS: Basophils % 0.1 %; Hematocrit 31.8 % (37.0-47.0); Hemoglobin 10.8 g/dL (11.5-15.3); Lymphocytes # 1.7 10^3/uL (0.8-4.8); Lymphocytes % 13.4 %; Mean Corpuscular Hemoglobin 31.4 pg (28.0-34.0); Mean Corpuscular Volume 92.4 fL (81-99); Mean Platelet Volume 10.3 fL (7.4-10.4); Monocytes # 0.4 10^3/uL (0.2-0.9); Monocytes % 2.9 %; Neutrophils # 10.39 10^3/uL (1.8-7.7); Neutrophils % 82.5 %; Nucleated Red Blood Cells # 0.1 /100WBC; Nucleated Red Blood Cells % 0.4 %; Platelet Count 333 10^3/cmm (130-400); Red Blood Count 3.44 10^6/uL (4.1-5.3); Red Cell Distribution Width 13.1 % (12.1-15.1); White Blood Count 12.6 10^3/uL (4.0-10.0)
[2020-09-08 08:00] VITALS: BP 142/90; PULSE 78; RESP 18; TEMP 36.4
[2020-09-08] MEDS: metoprolol succinate ER (24 HR) 100 mg Tablet PO (08:05)
[2020-09-08] MEDS: hydroCHLOROthiazide 25 mg Tablet PO (08:05)
[2020-09-08] MEDS: duloxetine 30 mg Capsule PO (08:05)
[2020-09-08] MEDS: atorvastatin 40 mg Tablet 20 MG PO (08:06)
[2020-09-08] MEDS: amlodipine 10 mg Tablet PO (08:06)
[2020-09-08] MEDS: lisinopril 20 mg Tablet PO (08:06)
[2020-09-08] MEDS: potassium chloride ER 10 mEq Tablet PO (08:06)
[2020-09-08 08:20] LABS: Alanine Aminotransferase 34 U/L (0-33); Albumin Level 3.7 g/dL (3.5-5.2); Alkaline Phosphatase 94 IU/L (35-105); Anion Gap 12.8 (5-19); Aspartate Amino Transferase 25 U/L (0-32); Blood Urea Nitrogen 15 mg/dL (8-23); Calcium 8.4 mg/dL (8.5-10.5); Carbon Dioxide 32 mmol/L (22-29); Chloride 95 mmol/L (98-107); Creatinine Clr Calc Pharmacy 150.1315; Globulin 2.2 g/dL (1.3-4.6); Glomerular Filtration Rate 162.3 mL/min (90-130); Glucose 181 mg/dL (65-115); Osmolality Calculated 287 mOsm/kg (285-295); Phosphorus 2.9 mg/dL (2.5-4.5); Potassium 3.8 mmol/L (3.5-5.1); Sodium 136 mmol/L (136-145); Total Bilirubin 0.4 mg/dL (0.15-1.2); Total Protein 5.9 g/dL (6.6-8.7)
[2020-09-08 10:31] VITALS: RESP 20
--- NOTE | 2020-09-08 10:49 | PM.PN ---
Subjective Subjective: Interval history: Patient is doing better this morning, she has some mild degree of neck pain when she got up to use the bathroom, she is planning on going home this afternoon, is waiting for Dr. Chegn to see her Vitals/I&O/Wt Last Vital Signs Temp 97.5 F L 09/08/20 08:00 Pulse 78 09/08/20 08:00 Resp 20 H 09/08/20 10:31 BP 142/90 09/08/20 08:00 Pulse Ox 93 09/08/20 03:51 09/07/20 09/08/20 09/08/20 22:59 06:59 14:59 Intake Total 600 / 1320 200 / 1520 Output Total 750 / 750 300 / 1050 Balance -150 / 570 -100 / 470 Physical Exam Const: COMMON NORMALS: no acute distress and patient oriented x3 HENMT: COMMON NORMALS: normocephalic HEAD & SCALP: normocephalic Neck/C-Spine: COMMON NORMALS: no JVD Resp: COMMON NORMALS: normal respiratory effort, No retractions, No use of accessory muscles and clear to auscultation bilaterally AUSCULTATION: clear to auscultation bilaterally Cardio: COMMON NORMALS: no JVD, regular rate, regular rhythm, S1 normal heart sound present and S2 normal heart sound present RATE: regular rate RHYTHM: regular rhythm HEART SOUNDS: S1 normal heart sound present and S2 normal heart sound present GI: COMMON NORMALS: Normal to inspection, nondistended, normoactive bowel sounds present, Soft to palpation, non-tender, No hepatosplenomegaly present, no masses and no bruits PALPATION: Yes Soft to palpation and Yes No hepatosplenomegaly present Extremity: COMMON NORMALS: no pedal edema Neuro: COMMON NORMALS: patient oriented x3 Psych: COMMON NORMALS: mental status grossly normal Urinary Catheter Management^: F: Cath Placed During This Visit: yes, but has since been removed by the nurse Reason for Continuing Indwelling Catheter: Decision to DC Catheter Urinary Catheter Date of Insertion: 09/03/20 Urinary Catheter Time of Insertion: 13:35 Date Urinary Catheter Removed: 09/05/20 Time Urinary Catheter Discontinued: 15:43 Data : 09/08/20 07:00 09/08/20 07:00 A&P Assessment and plan (1) Cervical spondylosis with myelopathy: Status: Acute (2) Hypertension: Status: Acute (3) UTI (urinary tract infection): Status: Acute Additional A&P Information 60-year-old female with past medical history of hypertension and severe cervical stenosis who underwent cervical laminectomy and fusion by Dr. Cheng. Our service was kindly asked by Dr. Cheng to participate in treatment of this patient. Status post cervical fusion and laminectomy. Increased pain, pain medications adjusted by surgical service. PT OT, currently doing better, hopefully will be discharged today Estimated blood loss of 700 cc. Hemoglobin 10.8 she is hemodynamically stable. Hypertension. Blood pressure medications on hold due to soft blood pressure. We will closely monitor her and do the necessary adjustments during this hospitalization. UTI. Cultures have not been obtained, and she is finished 3 days of Rocephin as inpatient, will not need antibiotics at discharge Hyponatremia. Resolved DVT prophylaxis. She is on Lovenox. Thank you very much for allowing us to participate in treatment of this patient. Attestations Medical Necessity Statement*: Patient will be discharged today for cervical spondylosis with myelopathy Procedures Arterial Line Size (Gauge): 20 Coding Level of Care Code Acute Director Of Strategy & Mobile for [facility] Fwd Diagnoses Cervical spondylosis with myelopathy M47.12 Hypertension I10 UTI (urinary tract infection) N39.0
--- NOTE | 2020-09-08 10:59 | PM.PN ---
Subjective Subjective: Interval history: pt pain improved Vitals/I&O/Wt Last Vital Signs Temp 97.5 F L 09/08/20 08:00 Pulse 78 09/08/20 08:00 Resp 20 H 09/08/20 10:31 BP 142/90 09/08/20 08:00 Pulse Ox 93 09/08/20 03:51 09/07/20 09/08/20 09/08/20 22:59 06:59 14:59 Intake Total 600 / 1320 200 / 1520 Output Total 750 / 750 300 / 1050 Balance -150 / 570 -100 / 470 Physical Exam Narrative: EXAM NARRATIVE: in [facility] Urinary Catheter Management^: F: Cath Placed During This Visit: yes, but has since been removed by the nurse Reason for Continuing Indwelling Catheter: Decision to DC Catheter Urinary Catheter Date of Insertion: 09/03/20 Urinary Catheter Time of Insertion: 13:35 Date Urinary Catheter Removed: 09/05/20 Time Urinary Catheter Discontinued: 15:43 Data : 09/08/20 07:00 09/08/20 07:00 A&P Assessment and plan (1) Cervical spondylosis with myelopathy: POD#5 pPSF cervical d/c today Status: Acute Attestations Medical Necessity Statement*: d/c today Procedures Arterial Line Size (Gauge): 20 Coding Level of Care Code Acute Criminal Intelligence Analyst for [facility] Schaeffer Diagnoses Cervical spondylosis with myelopathy M47.12
--- NOTE | 2020-09-08 11:00 | PM.DCS ---
Discharge Providers Date of Admission: 09/03/20 17:32 Date of Discharge: September 08, 2020 Attending Provider at Admission: Castro Cheng DO Attending Provider at Discharge: Castro Cheng DO Primary Care Provider: Onesimo Lacey MD Diagnoses at Discharge Discharge Diagnosis (1) Cervical spondylosis with myelopathy: Status: Acute Reason for Visit Reason for Visit: Spondylosis w/ myelopathy cervical region Hospital Course Hospital Course Patient was admitted on 09/03/2020 after having a posterior cervical spine fusion. She is given the hospital for pain control her stay was uneventful she is discharged on 09/08/2020 Physical Exam Narrative: EXAM NARRATIVE: Patient in restroom today. Pain is controlled. Urinary Catheter Management^: F: Cath Placed During This Visit: yes, but has since been removed by the nurse Reason for Continuing Indwelling Catheter: Decision to DC Catheter Urinary Catheter Date of Insertion: 09/03/20 Urinary Catheter Time of Insertion: 13:35 Date Urinary Catheter Removed: 09/05/20 Time Urinary Catheter Discontinued: 15:43 Discharge Data Data Completed and Pending: Completed Studies During Hospitalization Category Date Time Status XR cervical spine 1V 30721 Routine Exams 09/03/20 Completed Pending at discharge Category Date Time Status Complete Blood Co unt w/Auto AM LABS Lab 09/09/20 04:00 Ordered Comprehensive Met abolic Panel AM LA BS Lab 09/09/20 04:00 Ordered Magnesium AM LABS Lab 09/09/20 04:00 Ordered Phosphorus AM LAB S Lab 09/09/20 04:00 Ordered Labs from last 24 hours 09/08/20 09/08/20 07:00 07:00 WBC 12.6 H RBC 3.44 L Hgb 10.8 L Hct 31.8 L MCV 92.4 MCH 31.4 MCHC 34.0 RDW 13.1 Plt Count 333 MPV 10.3 Neut % (Auto) 82.5 Lymph % (Auto) 13.4 Murray % (Auto) 2.9 Eos % (Auto) 0.0 Baso % (Auto) 0.1 Neut # (Auto) 10.39 H Lymph # (Auto) 1.7 Murray # (Auto) 0.4 Eos # (Auto) 0.0 Baso # (Auto) 0.0 Nucleated RBC % (a uto) 0.4 Nucleated RBCs # 0.1 Sodium 136 Potassium 3.8 Chloride 95 L Carbon Dioxide 32 H Anion Gap 12.8 BUN 15 Creatinine 0.4 L GFR Calculation 162.3 H Glucose 181 H Calculated Osmolal ity 287 Calcium 8.4 L Phosphorus 2.9 Magnesium 2.0 Total Bilirubin 0.4 AST 25 ALT 34 H Alkaline Phosphata se 94 Total Protein 5.9 L Albumin 3.7 Globulin 2.2 Vitals: Last Vital Signs Temp 97.5 F L 09/08/20 08:00 Pulse 78 09/08/20 08:00 Resp 20 H 09/08/20 10:31 BP 142/90 09/08/20 08:00 Pulse Ox 93 09/08/20 03:51 Discharge Plan Discharge Patient Disposition: Home Condition: Stable Prescriptions: New Endocet 10-325 mg tablet 1 tab PO Q4H PRN (Reason: pain) 14 Days Qty: 60 RF: 0 Continued prednisone 20 mg tablet 20 mg PO DAILY PRN (Reason: inflammation) RF: 0 atorvastatin [Lipitor] 20 mg tablet 20 mg PO DAILY@21 RF: 0 potassium chloride 10 mEq capsule, extended release 10 meq PO DAILY@21 RF: 0 lisinopril 20 mg tablet 40 mg PO DAILY@21 RF: 0 duloxetine [Cymbalta] 30 mg capsule,delayed release(DR/EC) 30 mg PO DAILY@21 RF: 0 hydrochlorothiazide 25 mg tablet 25 mg PO DAILY@21 RF: 0 zolpidem [Ambien] 10 mg tablet 5 mg PO BEDTIME PRN (Reason: Sleep) RF: 0 tramadol 50 mg tablet 50 - 100 mg PO Q4H PRN (Reason: pain) RF: 0 diazepam 5 mg tablet 5 mg PO BID PRN (Reason: Anxiety) RF: 0 furosemide 20 mg tablet 20 mg PO DAILY PRN (Reason: swelling) RF: 0 ibuprofen 800 mg tablet 800 mg PO TID PRN (Reason: Pain) RF: 0 (DME) COCK UP SPLINT See Rx Instructions .ROUTE .MEDSUPPLY Qty: 2 RF: 0 (DME) Bone growth Stimulator E0748 See Rx Instructions .Route .MEDSUPPLY Qty: 1 RF: 0 amlodipine 10 mg Tablet 10 mg PO DAILY@21 RF: 0 metoprolol succinate 100 mg tablet extended release 24 hr 100 mg PO DAILY@21 RF: 0 multivitamin Tablet 1 tab PO DAILY RF: 0 duloxetine 60 mg capsule,delayed release(DR/EC) 60 mg PO DAILY@21 RF: 0 Discharge Orders: Discharge Order (Routine); Ordered 09/07/20 Ordered By: Castro Cheng Other Ambulatory Orders: DME: Walker (Order) Location: None Selected Ordered By: Jesse Pollack [place] [facility] [place] Castro Cheng, DO [Physician] - 2 weeks (Please call [facility] on Wednesday to schedule a follow up appointment to be seen in two weeks.) Discharge Diet: Advance as tolerated Discharge Activity: Limit activity as instructed Patient Instructions: Oxycodone/Acetaminophen (By mouth), Osteoarthritis (DC), Pain Management After Surgery (DC), Hypertension (DC), Opioid Safety Activity Restrictions/Additional Instructions: Thank you for choosing [facility] for your care! The following is a list of instructions, from your provider, to follow upon your discharge to ensure you have the optimal recovery from your recent injury or surgery. Anterior Cervical Discectomy and Fusion: What to Expect at Home Your Recovery Follow-up care is a hernandez part of your treatment and safety. Be sure to make and go to all appointments, and call your doctor if you are having problems. If you do not already have a follow-up appointment made, call office in the next 1-3 days to make follow up appointment for 2 weeks at [phone]. It is also a good idea to know your test results and keep a list of the medicines you take. You can expect your neck to feel stiff or sore after surgery. This should improve in the weeks after surgery. But it may take 4 to 6 months for you to get better completely. You may have trouble sitting or standing in one position for very long and may need pain medicine in the weeks after your surgery. It may take 4 to 6 weeks to get back to your usual activities, but it may depend on what kind of surgery you had. Your throat will feel sore and it may be difficult to swallow for the first 3 days after your surgery. As long as you can get liquids down without difficulty, this should slowly improve, otherwise call our office or seek medical attention if it becomes increasingly difficult to get anything down including liquids. Avoid hot liquids for first 3-5 days. Soothing foods/liquids such as jello, pudding, and luke warm soups are recommended until swallowing improves. Staying elevated will also help, it's advised you keep propped up at while sleeping to help reduce the swelling. You may use an ice pack directly on your incision or around it on the front of your neck, using a cloth to protect your skin; and a heating pad to the back of your neck as needed. Do not use over the counter anti-inflammatory medications (Ibuprofen, Motrin, Aleve, Advil, etc) Taking these meds after having a fusion can delay fusion rates, we recommend you avoid them for the first 3 [address] after your surgery[address] Dr. Cheng may advise you to work with a physical therapist to strengthen the muscles around your neck and back - this will be discussed at your follow - up appointments. The pain or numbness you were having in your arms before surgery should get better or go away completely. This care sheet gives you a general idea about how long it will take for you to recover. But each person recovers at a different pace. Follow the steps below to get better as quickly as possible. How can you care for yourself at home? Activity ? Rest when you feel tired. Getting enough sleep will help you recover. ? Try to walk each day. Start by walking a little more than you did the day before. Bit by bit, increase the amount you walk. Walking boosts blood flow and helps prevent pneumonia and constipation. Walking may also decrease your muscle soreness after surgery. ? No lifting anything that is more that 5 pounds. This may include heavy grocery bags and milk containers, a heavy briefcase or backpack, cat litter or dog food bags, a child, or a vacuum bin cleaner. ? Avoid strenuous activities, such as bicycle riding, jogging, weightlifting, or aerobic exercise, until your doctor says it is okay. ? Do not drive until your follow-up visit after your surgery, or until your doctor says it isokay. ? Avoid taking long car trips for 2 to 4 weeks after surgery. Your neck may become tired and painful from sitting too long in one position. ? You will probably need to take 4 to 6 weeks off from work. It depends on the type of work you do and how you feel. ? You may have sex as soon as you feel able, but avoid positions that put stress on your neck or cause pain. Diet ? You can eat your normal diet. If your stomach is upset, try bland, low-fat foods like plain rice, broiled chicken, toast, and yogurt ? Drink plenty of fluids. If you have kidney, heart, or liver disease and have to limit fluids, talk with your doctor before you increase the amount of fluids you drink. ? You may notice that your bowel movements are not regular right after your surgery. This is common. Try to avoid constipation and straining with bowel movements. You may want to take a fiber supplement every day. If you have not had a bowel movement after a couple of days, ask your doctor about taking a mild laxative. Medicines ? Take pain medicines exactly as directed. 1. If Dr. Cheng gave you a prescription medicine for pain, take lt as prescribed. 2. Do not take two or more pain medicines at the same time unless the doctor told you to. Many pain medicines have acetaminophen, which is Tylenol. Too much acetaminophen {Tylenol) can be harmful. 3. If you think your pain pill is making you sick to your stomach: 4. Take your pills after meals (unless your doctor has told you not to). 5. Ask your Dr. for a different pain pill. Incisioncare ? Remove your dressing 48hours after your surgery. Ok to shower and get the incision wet. Do not overtly wash your incision. When done, pad dry, leave open to air thereafter. Avoid creams and ointments directly on your incision. ? Your sutures in the incision will dissolve and fall out on their own. ? Keep the area clean and dry. You may cover it with a gauze bandage if it weeps or rubs against clothing; if you choose to do this, change the dressing everyday. Other instructions ? Use a heating pad, hot water bottle, or gentle massage on your back to reduce stiffness. Avoid putting heat on your incision When should you call for help? ? Call 911 anytime you think you may need emergency care. For example, call if: ? You pass out (lose consciousness). ? You have sudden chest pain and shortness of breath, or you cough upblood. ? You cannot swallow. ? You have severe pain in your neck or back. ? Call your Dr. or seek immediate medical care if: ? You have pain that does not get better after you take pain pills. ? You have loose stitches, or your incision comes open. ? You have blood or fluid draining from the incision. ? You have signs of infection, such as: 1. Increased pain, swelling, warmth, or redness. 2. Red streaks leading from the site. 3. Pus draining from the site. 4. Swollen lymph nodes in your neck or armpits. 5. A fever. ? You have severe pain in your arms. ? You have new or increased weakness or numbness in your arms. ? Watch closely for any changes in your health, and be sure to contact your doctor if: ? You do not have a bowel movement after taking a laxative. Discharge Attestations Time Spent in Discharge Care*: less than 30 min Quality Metrics Clinical Quality Measures During this hospital stay, did patient experience: None Coding Level of Care Code Acute Esther ONTIVEROS DC note Diagnoses Cervical spondylosis with myelopathy M47.12
--- NOTE | 2020-09-08 11:11 | PC.NURSE ---
1033 pt and verbalized understanding of discharge instructions, follow up appointments, and home medications.
[2020-09-08 11:13] VITALS: BP 142/90; PULSE 78; RESP 20; TEMP 36.4; O2SAT 94
== END 2020-09-08 11:14 | disposition home or self-care (01) | DRG 472 ==
LOC: MEDSURG 09-04 07:19
PROVIDERS: Family Medicine; Internal Medicine; Admitting Provider Orthopaedic Surgery; PCP Family Medicine; Visit Provider Orthopaedic Surgery
PROC: 0RG4071 Fusion of Cervicothoracic Vertebral Joint with Autologous Tissue Substitute, Posterior Approach, Posterior Column, Open Approach (ICD-10-PCS; CPT 63005; principal; 2020-09-03 12:00)
DX: M47.12 Other spondylosis with myelopathy, cervical region (principal); E87.1 Hypo-osmolality and hyponatremia; N39.0 Urinary tract infection, site not specified; M48.02 Spinal stenosis, cervical region; G89.18 Other acute postprocedural pain; I10 Essential (primary) hypertension; F17.200 Nicotine dependence, unspecified, uncomplicated; Z79.891 Long term (current) use of opiate analgesic; Z79.52 Long term (current) use of systemic steroids
CPT/HCPCS: 36415; 51702; 72020; 76000; 80048; 80053; 80069; 81001; 83735; 84100; 85025; 96372; 96374; 96375; 97110; 97116; 97161; 97530; C1713; J0330; J0690; J0696; J1100; J1170; J1650; J1885; J2250; J2270; J2370; J2405; J2704; J3010; J3490; J7030; L0174; P9041

== ENCOUNTER → 2020-09-24 10:20 | Outpatient (BNVA) | payer OTHER, SELFPAY | PROVIDERS: PCP Family Medicine; Visit Provider Orthopaedic Surgery | DX: Z01.818 Encounter for other preprocedural examination (principal); M47.12 Other spondylosis with myelopathy, cervical region; Z20.822 Contact with and (suspected) exposure to COVID-19 | CPT/HCPCS: 72040; 87635 ==

== ENCOUNTER 2020-09-25 11:05 | Day surgery (SDC) | payer OTHER, SELFPAY ==
[2020-09-24 17:22] VITALS: BMI 29.2
--- NOTE | 2020-09-25 11:23 | W.PM.OPSUD ---
Surgery/Procedure H&P Update DATE OF PROCEDURE: September 25, 2020 DATE H&P PERFORMED: 09/24/20 PREOP DIAGNOSIS: wound dehisence posterior cervical PLANNED PROCEDURE: Operation Date: 09/25/20 17:15 Proposed Procedures p Incision and Drainage 92530 T81.31XA(Not Applicable) - Castro Cheng DO
--- NOTE | 2020-09-25 11:23 | W.PM.OPSUD ---
Surgery/Procedure H&P Update DATE OF PROCEDURE: September 25, 2020 DATE H&P PERFORMED: 09/24/20 H&P UPDATE INFORMATION: I have reviewed H&P completed within last 30 days, I have examined patient prior to procedure and No changes to prior documentation PREOP DIAGNOSIS: wound dehisence posterior cervical PLANNED PROCEDURE: Operation Date: 09/25/20 17:15 Proposed Procedures p Incision and Drainage 40725 T81.31XA(Not Applicable) - Castro Cheng DO
[2020-09-25] MEDS: sodium chloride 0.9% 1,000 ML 30 ML (11:43)
[2020-09-25 11:45] VITALS: BP 158/80; PULSE 110; RESP 18; TEMP 36.2; O2SAT 98
--- NOTE | 2020-09-25 11:53 | ANES.PREANE2 ---
Pre-Anesthetic Assessment Pre-Anesthetic Assessment: Height/Weight: Height 1.63 m Weight 77.111 kg Temp Pulse Resp BP Pulse Ox 97.1 F L 110 H 18 158/80 98 09/25/20 11:45 09/25/20 11:45 09/25/20 11:45 09/25/20 11:45 09/25/20 11:45 Preop Diagnosis: wound dehisence posterior cervical Proposed Procedure: Operation Date: 09/25/20 17:15 Proposed Procedures p Incision and Drainage 47186 T81.31XA(Not Applicable) - Castro Cheng, DO Familial anesthetic complications: none Was Beta Arvin taken within 24 hours: Yes Was Clonidine taken within 24 hours: N/A Last intake: Intake Last Liquid Date 09/24/20 Last Liquid Time 23:00 Last Solid Date 09/24/20 Last Solid Time 20:00 Last Intake: 23:00 Social: Social History: No alcohol and No tobacco Packs per day: 1ppd Pack years: 40+ Exam: Pre-Anes Outpt Exam: alert, oriented x 3, clear to auscultation bilaterally and regular rate & rhythm Airway: Submandibular: WNL Cervical ROM: Other (limited c collar) MP: 2 Dentition: False Pulmonary: Pulmonary: COPD CV/HEM: CV/HEM: CHF and HTN : : None reported Hepatic: Hepatic: None reported GI: GI: GERD Metabolic: Metabolic: None reported Musc/skel: Musc/skel: Lower Back Pain and OA/DJD Neuropsych: Neuropsych: Anxiety and Depression Anesthetic Plan: ASA status: 3 Anesthesia: General Risk of > 500 ml blood loss (7ml/kg in children): No PFSH Anesthesia PFSH: Social History Smoking and tobacco status: current every day smoker Data Anesthesia Cardiac Studies: No Data to Display
[2020-09-25 12:35] LABS: Basophils # 0.1 10^3/uL (0.0-0.1); Basophils % 0.7 %; Eosinophils # 0.1 10^3/uL (0.0-0.8); Eosinophils % 1.4 %; Hematocrit 32.3 % (37.0-47.0); Lymphocytes # 1.2 10^3/uL (0.8-4.8); Lymphocytes % 14.9 %; Mean Corpuscular HGB Conc 34.1 g/dL (30.0-36.0); Mean Corpuscular Hemoglobin 31.3 pg (28.0-34.0); Mean Corpuscular Volume 91.8 fL (81-99); Mean Platelet Volume 9.2 fL (7.4-10.4); Monocytes # 0.4 10^3/uL (0.2-0.9); Monocytes % 4.4 %; Neutrophils % 78.2 %; Nucleated Red Blood Cells % 0 %; Platelet Count 450 10^3/cmm (130-400); Red Blood Count 3.52 10^6/uL (4.1-5.3); Red Cell Distribution Width 13.5 % (12.1-15.1); White Blood Count 8.3 10^3/uL (4.0-10.0)
[2020-09-25] MEDS: midazolam 1 mg/mL INJ 2 mL 2 MG IVP (13:19)
[2020-09-25 13:38] LABS: Anion Gap 15.7 (5-19); Blood Urea Nitrogen 8 mg/dL (8-23); Calcium 8.7 mg/dL (8.5-10.5); Carbon Dioxide 26 mmol/L (22-29); Glomerular Filtration Rate 162.3 mL/min (90-130); Glucose 128 mg/dL (65-115); Osmolality Calculated 282 mOsm/kg (285-295)
[2020-09-25 13:56] LABS: Sodium 136 mmol/L (136-145)
[2020-09-25 13:58] LABS: Potassium 2.7 mmol/L (3.5-5.1)
[2020-09-25 13:59] LABS: Chloride 97 mmol/L (98-107); Creatinine Clr Calc Pharmacy 148.4397
[2020-09-25] MEDS: potassium chloride premix 100 ML 50 MEQ IV (14:15)
--- NOTE | 2020-09-25 14:49 | PM.OP ---
Operative Report Date of procedure: September 25, 2020 Pre-op Diagnosis: wound dehisence posterior cervical Post-op diagnosis: same Procedure Done: 1. Complex closure of spine wound 12 inches long 2. Irrigation and debridement of posterior cervical wound down to bone Surgeon: Castro Cheng Anesthesia: General Estimated blood loss (mL): 25 Condition: stable Disposition: PACU Procedure: 1. Complex closure of spine wound 12 inches long 2. Irrigation and debridement of posterior cervical wound down to bone Patient is brought to the operative suite after undergoing anesthesia was placed in the prone position. All areas impingement were well-padded. The area where his dehisced was debrided. The incision was opened approximately 12 inches long. The cervical fascia was opened. And cerebrals were placed the wound was then irrigated with saline. Cultures were taken. Wound was then closed in a layered fashion starting with the cervical fascia using 0 Vicryl followed by oh strata fix. And then 2-0 Vicryl and then 3-0 nylon. Sterile dressings were applied and patient was transferred back to the PACU in stable condition.
[2020-09-25 15:15] VITALS: BP 105/79; PULSE 103; RESP 18; TEMP 36.3; O2SAT 98
[2020-09-25 15:25] VITALS: BP 107/73; PULSE 106; RESP 18; O2SAT 95
[2020-09-25 15:30] VITALS: BP 100/74; PULSE 103; RESP 18; TEMP 37.1; O2SAT 96
[2020-09-25 15:46] VITALS: BP 108/68; PULSE 104; RESP 18; TEMP 36.8; O2SAT 95
--- NOTE | 2020-09-25 15:47 | SUR.PHASEI ---
1535 PT C/O OF PAIN TO BACK OF NECK ESPECIALLY WITH MOVEMENT, PT STATES SHE HAS HAD PAIN FOR MONTHS, BUT THIS IS MORE BURNING PAIN PT UNABLE TO GIVE A NUMBER, PT OK WITH TAKING PO PAIN MED IN OPS PT WANTS TO SEE HER AND GO HOME, PT WANTS SPRITE TO SIP ON AND CRACKERS, PT MOVES ALL EXTREMETIES TO COMMAND, PT HAS GOOD VISUALIZATION PT ABLE TO SEE THE CLOCK ON THE WALL.
[2020-09-25] MEDS: HYDROcodone-acetaminophen 5-325 mg Tablet 1 TAB PO (16:15)
[2020-09-25 16:18] VITALS: BP 109/76; PULSE 98; RESP 16; TEMP 36.6; O2SAT 95
--- NOTE | 2020-09-25 18:00 | ANE.PACU2 ---
Inpatient post-anesthesia follow up: Airway intact: Yes Vital signs: Temperature 97.9 F Pulse Rate 98 Respiratory Rate 16 Blood Pressure 109/76 Pulse Oximetry 95 Oxygen Delivery Me thod Room Air Oxygen Flow Rate 8 Fraction of Inspir ed Oxygen Hydration adequate: Yes Nausea and vomiting: No Pain level: 2 Mental status: Baseline
== END 2020-09-25 16:45 | disposition home or self-care (01) ==
PROVIDERS: Anesthesiology; PCP Family Medicine; Visit Provider Orthopaedic Surgery
PROC: (CPT 13160; principal; 2020-09-25 17:05)
DX: T81.30XA Disruption of wound, unspecified, initial encounter (principal); J44.9 Chronic obstructive pulmonary disease, unspecified; I11.0 Hypertensive heart disease with heart failure; I50.9 Heart failure, unspecified; K21.9 Gastro-esophageal reflux disease without esophagitis; F17.210 Nicotine dependence, cigarettes, uncomplicated; F41.9 Anxiety disorder, unspecified; F32.9 Major depressive disorder, single episode, unspecified
CPT/HCPCS: 13160; 80048; 85025; 87070; 87075; 96365; 96374; J0690; J1100; J1170; J2250; J2405; J2704; J3010; J3480; J3490; J7030

== ENCOUNTER → 2020-10-15 08:48 | Outpatient (BNVA) | payer OTHER, SELFPAY | PROVIDERS: PCP Family Medicine; Visit Provider Orthopaedic Surgery | DX: M47.12 Other spondylosis with myelopathy, cervical region (principal); Z48.89 Encounter for other specified surgical aftercare | CPT/HCPCS: 72040 ==

== ENCOUNTER → 2020-12-03 08:35 | Outpatient (BNVA) | payer OTHER, SELFPAY | PROVIDERS: PCP Family Medicine; Visit Provider Orthopaedic Surgery | DX: Z48.89 Encounter for other specified surgical aftercare (principal); M47.12 Other spondylosis with myelopathy, cervical region | CPT/HCPCS: 72040 ==

== ENCOUNTER 2021-01-07 06:00 | Outpatient (RCR) | payer OTHER, SELFPAY | END 2021-01-14 23:59 | disposition home or self-care (01) | LOC: SPT 06:00 | PROVIDERS: PCP Family Medicine; Referring Provider Orthopaedic Surgery; Visit Provider Orthopaedic Surgery | DX: Z47.89 Encounter for other orthopedic aftercare (principal) | CPT/HCPCS: 97161 ==

== ENCOUNTER 2021-01-15 06:00 | Outpatient (RCR) | payer OTHER, SELFPAY | END 2021-02-13 23:59 | disposition home or self-care (01) | LOC: SPT 06:00 | PROVIDERS: PCP Family Medicine; Referring Provider Orthopaedic Surgery; Visit Provider Orthopaedic Surgery | DX: Z98.1 Arthrodesis status (principal) | CPT/HCPCS: 97110; 97140 ==

== ENCOUNTER 2021-02-14 06:00 | Outpatient (RCR) | payer OTHER, SELFPAY | END 2021-03-16 23:59 | disposition home or self-care (01) | LOC: SPT 06:00 | PROVIDERS: PCP Family Medicine; Referring Provider Orthopaedic Surgery; Visit Provider Orthopaedic Surgery | DX: Z47.89 Encounter for other orthopedic aftercare (principal); Z98.1 Arthrodesis status | CPT/HCPCS: 97110; 97140 ==

== ENCOUNTER → 2021-03-06 14:55 | Outpatient (BNVA) | payer OTHER, SELFPAY | PROVIDERS: PCP Family Medicine; Visit Provider Physician Assistant | DX: M47.12 Other spondylosis with myelopathy, cervical region (principal); Z47.89 Encounter for other orthopedic aftercare | CPT/HCPCS: 72040 ==

== ENCOUNTER → 2021-04-29 14:51 | Outpatient (BNVA) | payer OTHER, SELFPAY | PROVIDERS: PCP Family Medicine; Visit Provider Physician Assistant | DX: M54.50 Low back pain, unspecified (principal); Z98.890 Other specified postprocedural states | CPT/HCPCS: 72040 ==

== ENCOUNTER 2021-09-03 15:55 | Outpatient (CLI) | payer OTHER, SELFPAY | END 2021-09-03 15:56 | disposition home or self-care (01) | LOC: SPT 15:56 | PROVIDERS: PCP Family Medicine; Visit Provider Specialist | DX: Z46.89 Encounter for fitting and adjustment of other specified devices (principal); G56.03 Carpal tunnel syndrome, bilateral upper limbs | CPT/HCPCS: 97760; L3908 ==

== ENCOUNTER 2021-09-12 05:36 | Day surgery (SDC) | payer OTHER, SELFPAY ==
[2021-09-11 12:11] VITALS: BMI 29.9
[2021-09-12] VITALS (8 sets, daily range): BP systolic 103–160; BP diastolic 76–97; PULSE 82–96; RESP 16–20; TEMP 36.1–36.3; O2SAT 91–97
[2021-09-12] MEDS: acetaminophen 1,000 MG/100 ML PIGGYBACK 400 MG IV (06:33)
[2021-09-12] MEDS: CELEcoxib 200 mg Capsule 400 MG PO (06:33)
--- NOTE | 2021-09-12 06:50 | ANES.PREANE2 ---
Pre-Anesthetic Assessment Height/Weight: Height 1.65 m Weight 81.647 kg Temp Pulse Resp BP Pulse Ox 97.0 F L 96 18 142/81 97 09/12/21 06:10 09/12/21 06:10 09/12/21 06:10 09/12/21 06:10 09/12/21 06:10 Preop Diagnosis: Left Carpal Tunnel Syndrome Operation Date: 09/12/21 07:00 Proposed Procedures p Carpal Tunnel Release Left; 01850/g56.00(Left) - Nohemi Cano MD Familial anesthetic complications: None Was Beta Arvin taken within 24 hours: N/A Was Clonidine taken within 24 hours: N/A Last intake: Intake Last Liquid Date 09/11/21 Last Liquid Time 23:59 Last Solid Date 09/11/21 Last Solid Time 23:59 Social Tobacco and No alcohol Exam alert, oriented x 3, clear to auscultation bilaterally and regular rate & rhythm Airway Cervical ROM: within normal limits and Other (limited extension, s/pt fusion) Mallampati: Class II Dentition: false Pulmonary None reported CV/HEM Hypertension None reported Hepatic None reported GI Gastroesophageal Reflux Disease Metabolic None reported Musc/skel neck pain/sitffness Neuropsych None reported Anesthetic Plan ASA status: 2 Anesthesia: MAC Risk of > 500 ml blood loss (7ml/kg in children): No Medications/Allergies Home Medications Medication Instructions Recorded Confirmed Last Taken Type atorvastatin 20 mg tablet (Lipitor) 20 mg PO DAILY@08/14/20 09/12/21 09/11/21 History diazepam 5 mg tablet 5 mg PO BID PRN 08/14/20 09/12/21 09/24/20 History hydrochlorothiazide 25 mg tablet 25 mg PO DAILY@08/14/20 09/12/21 09/11/21 History ibuprofen 800 mg tablet 800 mg PO TID PRN 08/14/20 09/12/21 09/24/20 History lisinopril 20 mg tablet 40 mg PO DAILY@08/14/20 09/12/21 09/11/21 History potassium chloride 10 mEq 10 meq PO DAILY@08/14/20 09/12/21 09/11/21 History capsule,extended release amlodipine 10 mg tablet 10 mg PO DAILY@09/02/20 09/12/21 09/11/21 History duloxetine 60 mg capsule,delayed 60 mg PO DAILY@09/04/20 09/12/21 09/11/21 History release metoprolol succinate 100 mg 100 mg PO DAILY@09/04/20 09/12/21 09/11/21 History tablet,extended release 24 hr tramadol 50 mg tablet 50 - 100 mg PO Q4H PRN 7 Days #60 10/15/20 09/11/21 Unknown Rx tab COCK UP SPLINT #2 ea NS 09/03/21 09/03/21 Unknown Rx Allergies Allergy/AdvReac Type Severity Reaction Status Date / Time No Known Allergies Allergy Verified 09/03/21 14:32 PFS Anesthesia Medical History Bilateral carpal tunnel syndrome Social History Smoking and tobacco status: current every day smoker Data Anesthesia Cardiac Studies: No Data to Display
[2021-09-12] MEDS: sodium chloride 0.9% 1,000 ML 30 ML IV (06:54)
--- NOTE | 2021-09-12 06:55 | P.HPUD_ITS ---
Surgery/Procedure H&P Update DATE OF PROCEDURE: September 12, 2021 DATE H&P PERFORMED: 09/03/21 H&P UPDATE INFORMATION: I have reviewed H&P completed within last 30 days, I have examined patient prior to procedure, No changes to prior documentation and H&P is in [facility] EMR on date indicated PREOP DIAGNOSIS: Left Carpal Tunnel Syndrome PLANNED PROCEDURE: Operation Date: 09/12/21 07:00 Proposed Procedures p Carpal Tunnel Release Left; 13078/g56.00(Left) - Nohemi Cano MD Related Problem List Diagnoses (1) Left carpal tunnel syndrome:
--- NOTE | 2021-09-12 06:56 | W.PM.OPSUD ---
Surgery/Procedure H&P Update DATE OF PROCEDURE: September 12, 2021 DATE H&P PERFORMED: 09/03/21 PREOP DIAGNOSIS: Left Carpal Tunnel Syndrome PLANNED PROCEDURE: Operation Date: 09/12/21 07:00 Proposed Procedures p Carpal Tunnel Release Left; 25206/g56.00(Left) - Nohemi Cano MD
[2021-09-12 07:07] LABS: Chloride 104 mmol/L (98-107); Potassium 3.5 mmol/L (3.5-5.1); Sodium 139 mmol/L (136-145)
--- NOTE | 2021-09-12 07:07 | SUR.PREOP ---
BMP RESULTS & WAIT TIME BMP sent to lab at 0628, drawn per anesthesia policy. Surgery delayed due to this, called lab at 0705 to estimate time remaining for labs to result. This nurse was told by lab personnel that it would be another 20-30 minutes. This nurse did inform Dr. Cano and Dr. Dailey of wait time.
[2021-09-12 07:25] LABS: Anion Gap 16.5 (5-19); Blood Urea Nitrogen 10 mg/dL (8-23); Calcium 8.3 mg/dL (8.5-10.5); Carbon Dioxide 22 mmol/L (22-29); Glucose 117 mg/dL (65-115); Osmolality Calculated 288 mOsm/kg (285-295)
--- NOTE | 2021-09-12 08:40 | SUR.PHASEI ---
8:30 RECEIVED PATIENT FROM OR STAFF. VENTILATING WELL. ROM AND SENSATION TO FINGERS OF LEFT HAND.
--- NOTE | 2021-09-12 08:45 | SUR.PHASEI ---
NSR ON MONITOR. A+O X 3
--- NOTE | 2021-09-12 09:07 | PM.OP ---
Operative Report Date of procedure: September 12, 2021 Pre-op diagnosis: Left Carpal Tunnel Syndrome Post-op diagnosis: Left Carpal Tunnel Syndrome Post-op findings: Left median nerve without significant discoloration Procedure done: Left carpal tunnel release Pathology: none sent Surgeon: Nohemi Cano Anesthesia: MAC (With Jackie block, ASA 2) Estimated blood loss (mL): 5 Tourniquet time (min): 43 At 250 mmHg IV fluids (mL): 500 Urine output (mL): 0 (No Lamb) Complications: None Findings: Significant median nerve compression Condition: stable Disposition: PACU (Then transferred to same-day surgery for discharge to home) Brief History: This is an established 61 year old female patient with symptoms consistent with bilateral carpal tunnel syndrome. She describes pain from her elbow down to her hands. Patient states that she has had the symptoms for years; however, she had to put surgery on hold due to surgery on her spine with Dr. Cheng. Patient states she has numbness to the thumb, index, and middle fingers. Patient states that the pads of all her digits feel they are beginning to go numb as well.? After evaluation in the office, she wished to proceed with left carpal tunnel release. Procedure: The patient was brought to the operating theater. The patient had a [place] block with MAC, ASA 2. The tourniquet was elevated to 250 mmHg for a total tourniquet time of 43 minutes. The patient was also given Ancef 2 g preoperatively. The arm was then prepped and draped with DuraPrep in usual fashion with the arm draped free. A surgical pause was performed. At the time, the surgical pause, we confirmed the site and side of surgery. We also confirmed the patient's identity, appropriate and timely administration of preoperative antibiotics and preoperative surgical markings. An incision was then made along the thenar crease. The incision crossed the wrist joint in a curvilinear fashion. Dissection continued through skin and soft tissues using a scalpel. The palmaris longus was identified along with the transverse carpal ligament. Each of these was released carefully to avoid injury to the median nerve. We were able to dissect gently into the carpal canal which was noted to be quite tight with significant compression across the median nerve. The nerve was visualized and was an hourglass shape. The canal was subsequently palpated to assure there was no bony encroachment upon the canal. There was a quite thickened fibrous tissue within the canal, and this was opened longitudinally as well. The canal was then palpated distally and proximally to assure that my small finger was passed easily without impingement. Finding this to be so, attention was directed to closure. The wound was irrigated with ropivacaine plain. It was then closed with 3-0 nylon in an interrupted mattress fashion. Sterile dressing was then placed consisting of Xeroform gauze, fluffed fluffs, sterile soft roll, a volar splint, and an Loy wrap. The tourniquet was released after 43 minutes. There were no complications. There were no specimens. The procedure was well tolerated. Plan is the patient will be discharged home. Related Problem List Diagnoses (1) Left carpal tunnel syndrome:
--- NOTE | 2021-09-12 15:57 | ANE.PACU2 ---
Inpatient post-anesthesia follow up: Airway intact: Yes Vital signs: Temperature 97.2 F Pulse Rate 82 Respiratory Rate 16 Blood Pressure 112/97 Pulse Oximetry 93 Oxygen Delivery Me thod Room Air Oxygen Flow Rate Fraction of Inspir ed Oxygen Hydration adequate: Yes Nausea and vomiting: No Pain level: 1 Mental status: Baseline
== END 2021-09-12 09:38 | disposition home or self-care (01) ==
PROVIDERS: Anesthesiology; PCP Family Medicine; Visit Provider Specialist
PROC: (CPT 64721; principal; 2021-09-12 07:00)
DX: G56.02 Carpal tunnel syndrome, left upper limb (principal); K21.9 Gastro-esophageal reflux disease without esophagitis; F17.210 Nicotine dependence, cigarettes, uncomplicated
CPT/HCPCS: 64721; 80048; J0690; J2250; J2704; J3010; J3490; J7030

== ENCOUNTER 2023-05-13 07:01 | Outpatient (CLI) | payer OTHER, SELFPAY ==
--- NOTE | 2023-05-13 07:04 | MR_ITS ---
WS: [id number] MRI HEAD WITH CONTRAST TECHNIQUE: Sagittal T1, T2 axial, T2 axial FLAIR, axial susceptibility weighted imaging, axial diffus ion weighted images, and coronal T2 images were obtained. Pre and post-T1 axial and post T1 coronal i mages. ADC and FSPGR images. CLINICAL INFORMATION: OTHER AMNESIA COMPARISON: CT head 2013 FINDINGS: Tiny focus of restricted diffusion in the LEFT lateral thalamus consistent with a tiny acute lacunar infarct measuring 4 mm. No other foci of restricted diffusion. Moderate to advanced small vessel verduzco ges. Small vessel changes in the anthony. 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 No hemosiderin on susceptibly weighted images. Normal vascular flow voids at the skull base. Paranasal sinuses and mastoid air cells are well aerate d. Normal posterior nasopharynx. Normal optic chiasm and pituitary infundibulum. Mild symmetric atrop hy temporal lobes and hippocampal formations. No abnormal gadolinium enhancement. Normal visualized dural venous sinuses. IMPRESSION: 1. Tiny focus of restricted diffusion involving the LEFT thalamus compatible with a tiny acute lacun ar infarct. No other foci of acute ischemia. 2. Moderate to advanced small vessel changes with mild parenchymal volume loss. Small changes in the anthony. 3. Chronic appearing infarct in the RIGHT brachium pontis with encephalomalacia and gliosis. 4. No hemosiderin on susceptibility-weighted images. 5. No abnormal gadolinium enhancement.
[2023-05-13] MEDS: gadobenate dimeglumine 20 mL vial IV (07:43)
== END 2023-05-13 07:02 | disposition home or self-care (01) ==
LOC: RAD 07:03
PROVIDERS: PCP Family Medicine; Visit Provider Family Medicine
DX: R41.3 Other amnesia (principal); R90.89 Other abnormal findings on diagnostic imaging of central nervous system; I67.89 Other cerebrovascular disease; Z86.73 Personal history of transient ischemic attack (TIA), and cerebral infarction without residual deficits
CPT/HCPCS: 70553; A9577

== ENCOUNTER 2023-11-22 13:11 | Outpatient (RCR) | payer OTHER, SELFPAY | END 2023-12-15 23:59 | disposition home or self-care (01) | LOC: SPT 13:11 | PROVIDERS: PCP Family Medicine; Visit Provider Specialist | DX: I63.511 Cerebral infarction due to unspecified occlusion or stenosis of right middle cerebral artery (principal) | CPT/HCPCS: 97110; 97162; 97530 ==

== ENCOUNTER 2023-12-15 11:00 | Outpatient (CLI) | payer OTHER, SELFPAY ==
--- NOTE | 2023-12-15 11:00 | MR_ITS ---
WS: [id number] MRI BRAIN WITHOUT CONTRAST HISTORY: I63.511 - Cerebral infarction due to unspecified occlusio... COMPARISON: Prior MRI 05/13/2023 TECHNIQUE: Diffusion imaging, multiplanar T1, T2 and FLAIR imaging obtained. No acute infarct. Diffusion imaging is normal. There is extensive bilateral confluent and patchy T2 a nd FLAIR signal abnormalities throughout the white matter which has not definitely progressed since 1 07/14/2022. Prior infarct in the RIGHT brachium pontis is stable. Mild small vessel ischemic changes b ilaterally in the anthony. Prior lacunar infarct in the RIGHT thalamus. No significant hippocampal atrop hy. No new infarct since the prior study identified. Ventricles and extra-axial spaces are normal. No inferior displacement of cerebellar tonsils. The sella turcica and pituitary gland are unremarkabl e. Dural venous sinuses and [place] of [place] demonstrate no abnormality on this unenhanced studies. Paranasal sinuses: Clear. Mastoid air cells: Normal. Calvarium and scalp: Intact. MR/MR head wo con* [id number] IMPRESSION: 1. No acute infarct. Diffusion imaging is normal. 2. Moderate to advanced small vessel ischemic disease with mild volume loss. S imilar to the prior study. 3. Additional small vessel ischemic changes in the anthony and the RIGHT brachium pontis. 4. Remote lacunar infarct RIGHT thalamus. 5. No new infarct.
--- NOTE | 2023-12-15 11:45 | MR_ITS ---
WS: [id number] MRA CAROTID ARTERIES HISTORY: I63.511 - Cerebral infarction due to unspecified occlusio... COMPARISON: None available. TECHNIQUE: MRA is performed with intravenous gadolinium. MIP and source images are reviewed. Right: Normal cervical carotid artery. No significant stenosis at the bifurcation. Source images are normal of the internal/external carotid arteries to the skull base. Left: Normal cervical carotid artery. Normal artery arising from the arch. Bifurcation is normal. No significant stenosis. Subclavian Arteries: Intact and normal size. Best seen on the source imaging. Vertebral Arteries: Small caliber RIGHT vertebral artery. Proximal RIGHT vertebral artery is not well visualized. The proximal LEFT vertebral artery arises from the subclavian as expected. MR/MR angio neck w con* [id number] IMPRESSION: 1. No cervical carotid stenosis or significant plaque identified. 2. Small caliber but patent RIGHT vertebral artery. 3. The very proximal RIGHT vertebral artery is not well visualized. Otherwise vertebral arteries are normal.
--- NOTE | 2023-12-15 12:15 | MR_ITS ---
WS: [id number] MRA ANGIOGRAPHY [place] OF BEY HISTORY: temporal pain, vision change COMPARISON: None available. TECHNIQUE: 3-D MR angiography is performed of the [place] of [place]. All images are reviewed including source images. Small caliber but patent RIGHT vertebral artery. Mildly dominant LEFT vertebral artery. Normal basila r artery. Posterior cerebral arteries are both patent. Dominant LEFT posterior communicating artery. 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 Intracranial portion of the internal carotid arteries are normal course and caliber. No significant a therosclerosis, stenosis or aneurysm identified. Middle and anterior cerebral arteries are both paten t with no significant disease. Anterior communicating artery is also normal. MR/MR angio head wo con [id number] IMPRESSION: 1. No occlusions in the [place] of [place]. 2. No [place] of [place] aneurysm. 3. 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
[2023-12-15] MEDS: gadobenate dimeglumine 20 mL vial IV (12:35)
== END 2023-12-15 11:05 | disposition home or self-care (01) ==
PROVIDERS: PCP Family Medicine; Visit Provider Specialist
DX: I63.511 Cerebral infarction due to unspecified occlusion or stenosis of right middle cerebral artery (principal); G37.9 Demyelinating disease of central nervous system, unspecified; G46.2 Posterior cerebral artery syndrome; R51.9 Headache, unspecified; Z86.73 Personal history of transient ischemic attack (TIA), and cerebral infarction without residual deficits
CPT/HCPCS: 70544; 70548; 70551; A9577

== ENCOUNTER 2023-12-16 06:00 | Outpatient (RCR) | payer OTHER, SELFPAY | END 2024-01-15 23:59 | disposition home or self-care (01) | LOC: SPT 06:00 | PROVIDERS: PCP Family Medicine; Visit Provider Specialist | DX: I63.511 Cerebral infarction due to unspecified occlusion or stenosis of right middle cerebral artery (principal) | CPT/HCPCS: 97110; 97112; 97530 ==